=== PATIENT | male | born 1955 | race Caucasian/White ===

== ENCOUNTER → 2019-04-02 12:33 | Outpatient (BNVA) | payer MEDICARE, SELFPAY | PROVIDERS: Family Provider Family Medicine; Visit Provider Nurse Practitioner | DX: F33.2 Major depressive disorder, recurrent severe without psychotic features (principal); F41.1 Generalized anxiety disorder; F10.20 Alcohol dependence, uncomplicated; F17.218 Nicotine dependence, cigarettes, with other nicotine-induced disorders | CPT/HCPCS: 99213 ==

== ENCOUNTER → 2019-07-02 08:25 | Outpatient (BNVA) | payer MEDICARE, SELFPAY | PROVIDERS: Family Provider Family Medicine; Visit Provider Nurse Practitioner | DX: F33.2 Major depressive disorder, recurrent severe without psychotic features (principal) | CPT/HCPCS: 99203; 99213 ==

== ENCOUNTER → 2019-09-26 09:40 | Outpatient (BNVA) | payer MEDICARE, MEDICAID, SELFPAY | PROVIDERS: Family Provider Family Medicine; Visit Provider Nurse Practitioner | DX: F33.2 Major depressive disorder, recurrent severe without psychotic features (principal); F41.1 Generalized anxiety disorder; F17.218 Nicotine dependence, cigarettes, with other nicotine-induced disorders; F10.20 Alcohol dependence, uncomplicated | CPT/HCPCS: 99214 ==

== ENCOUNTER 2019-11-03 14:31 | Emergency (ER) | payer MEDICARE, MEDICAID, SELFPAY ==
[2019-11-03] VITALS (9 sets, daily range): BP systolic 80–113; BP diastolic 43–60; PULSE 76–95; RESP 16–24; TEMP 37.1; O2SAT 91–100; BMI 22.2
--- NOTE | 2019-11-03 14:38 | XR_ITS ---
WS: [id number] EXAM: AP CHEST: PORTABLE UPRIGHT DATE OF EXAM: 11/03/2019, 1448 hours COMPARISON: Chest x-ray from 01/17/2017 HISTORY: Patient is 64 years old with fall injury. Complaining of shortness of breath. FINDINGS: The cardiac silhouette is stable and within normal limits. The mediastinal contours are similar. The pulmonary vascularity is normal. Chronic lung changes are demonstrated. There has been interval increase in bilateral basilar interstitial markings. Whether this represents progression of fibrosis versus interstitial pneumonitis or other inflammatory process is uncertain. There is no effusion or pneumothorax. Bone density is decreased. XR/XR chest 1V portable [id number] IMPRESSION: Chronic lung changes. Worsening bilateral interstitial markings in both lung ba ses suggesting either progression of fibrosis versus an acute interstitial pneu monitis or inflammatory process. I do not think this represents pulmonary edema .
--- NOTE | 2019-11-03 14:38 | XR_ITS ---
WS: [id number] EXAM: AP PELVIS DATE OF EXAMINATION: 11/03/2019, 1451 hours COMPARISON: None. HISTORY: Patient is 64 years old with pelvic pain status post fall. Pain in the right hip. FINDINGS: Bone density is profoundly decreased. Multilevel changes of arthritis are seen in the lower lumbar sp ine. Endovascular stenting seen in the area of the left common iliac artery. Slight arthritis within both SI joints. Endovascular stenting seen in the area of the left proximal upper thigh region. Dedic ated views of both hips recommended. There is a lucent line across the quadrilateral surface involvin g the right acetabulum suggesting an anterior column fracture. Dedicated 2 views of the right hip rec ommended. There are findings of a fracture involving the right inferior pubic ramus. XR/XR pelvis 1-2V* [id number] IMPRESSION: Imaging findings of a fractured right inferior pubic ramus and suspected fractu re involving the right acetabular anterior column. Dedicated views of the right hip recommended.
--- NOTE | 2019-11-03 14:38 | CT_ITS ---
WS: [id number] EXAM: CT cervical spin wo con* [id number] DATE OF EXAMINATION: 11/03/2019, 1551 hours COMPARISON: Cervical spine examination from 07/16/2014 HISTORY: 64 years old with neck pain status post fall. TECHNIQUE: Transaxial computed tomography was obtained through the cervical spine and viewed in multi ple windows with reconstructions. DLP: 428.[address] scans at [facility] use at least one of these dose optimization techniques: automat ed exposure control; mA and/or kV adjustment per patient size (includes targeted exams where dose is matched to clinical indication); or iterative reconstruction. FINDINGS: Skull base is intact. Mastoid air cells are pneumatized and well-aerated. Predens space and preverteb ral soft tissue plane are normal. There is a large old anterior corpectomy with fibular strut fixatio n between C3 and C6 with solid ankylosis across the fusion. Anterior plate and screws in stable posit ion. Degenerative polyposis changes C2-3, C6-7 and C7-T1 similar. Old compression fracture deformity superior endplate of T1 similar. Old segmented spinous process fracture of T1 versus old nydia shoulde rs fracture again noted. Considered chronic. An acute fracture is not seen. There are findings of ank ylosis across bilateral C3-4 facet joints. Fairly severe spinal canal stenosis C2-3 level with mass e ffect on the cord. AP diameter of the canal around 5 mm. Right greater than left neural foraminal gisell nosis C2-3 level. Lung apices are clear. Some minimal emphysematous changes demonstrated. CT/CT cervical spin wo con* [id number] IMPRESSION: Old prior surgical changes as described with solid ankylosis across the fusion. No acute fracture or subluxation malalignment. Severe spinal canal stenosis wit h cord deformity C2-3 level similar to prior imaging. Spine surgery referral re commended.
--- NOTE | 2019-11-03 14:38 | CT_ITS ---
WS: [id number] EXAM: CT head wo con* [id number] DATE OF EXAMINATION: 11/03/2019, 1548 hours COMPARISON: Head CT from 07/23/2014 HISTORY: 64 years old with head injury status post fall. Complaining of pain. TECHNIQUE: Thin slice imaging obtained through the brain. Viewed in brain, subdural and bone window with reconst ructions. DLP: 554.[address] scans at [facility] use at least one of these dose optimization techniques: automat ed exposure control; mA and/or kV adjustment per patient size (includes targeted exams where dose is matched to clinical indication); or iterative reconstruction. FINDINGS: Slight motion artifact on the examination. Generalized changes of age-related atrophy again seen. Gra y-white differentiation is normal. There are slight changes of decreased attenuation within the white matter felt to represent sequelae from chronic small vessel white matter microangiopathic change. No findings of hemorrhage, hydrocephalus, mass, mass effect or abnormal extra-axial fluid collection is seen. Overall bone density is decreased. No skull fracture seen. Mastoid air cells are pneumatized and well aerated. Slight chronic sinusitis changes demonstrated. Extracalvarial soft tissues are unre markable. The paranasal sinuses are well pneumatized as visualized. CT/CT head wo con* [id number] IMPRESSION: Atrophy and slight chronic white matter changes. No acute intracranial process.
--- NOTE | 2019-11-03 14:39 | ECG_ITS ---
[facility] Test Date: 2019-11-03 Pat Name: Raz Cardenas Department: Room: Gender: Male [employer] Director: : [id number] Requested By: Su Coulter Order Number: [id number] Sharron MD: Vanesa Morris M.D. Measurements Intervals [place] Rate: 76 P: 65 [place]: 194 QRS: 21 QRSD: 85 T: 54 QT: 383 QTc: 431 Interpretive Statements SINUS RHYTHM Compared to ECG 01/17/2017 20:03:16 No significant changes Electronically Signed On 11-03-2019 20:52:24 CDT by Vanesa Morris M.D. [email or web address]
--- NOTE | 2019-11-03 14:40 | ED_ITS ---
HPI - SOB/Dyspnea General: Chief Complaint: Shortness of Breath/Dyspnea Stated Complaint: HYPOXIC Time Seen by Provider: 11/03/19 14:34 Source: patient and EMS Mode of arrival: EMS Limitations: no limitations History of Present Illness: HPI Narrative: 64-year-old male who is here with EMS with alcohol toxic patient a fall and shortness of breath. Patient states he drinks daily and has been drinking today. He states he had a fall last night and hit his head and has head pain. When EMS arrived patient's pulse ox was in the 70s and he is requiring oxygen. He has a history of congestive heart failure. Patient does not require oxygen at home. Associated symptoms: Reports extremity pain; Deny abdominal pain, chest pain, fever(s), nausea or vomiting Review of Systems Const: Denies: fever(s), chills, body aches or change in appetite Eyes: Denies: blurry vision or eye discomfort ENMT: Denies: throat pain or dental pain Card: Denies: chest pain Resp: Reports: dyspnea GI: Denies: abdominal pain, nausea, vomiting or diarrhea : Denies: dysuria Musc: Reports: extremity pain Skin/Breast: Denies: rash Neuro: Denies: headache(s) Psych: Denies: depression Will/Lymph: Denies: easy bruising All/Imm: Denies: urticaria PFSH ED PFSH: Medical History Alcohol dependence, uncomplicated Generalized anxiety disorder Major depressive disorder, recurrent severe without psychotic features Nicotine dependence, cigarettes, with other nicotine-induced disorders Social History Smoking and tobacco status: current every day smoker cigarettes Smoking risk assessment/counseling performed?: Yes Tobacco counseling given: counseling >3 minutes Physical Exam Const: COMMON NORMALS: no acute distress and patient oriented x3 GENERAL APPEARANCE: ill appearing HENMT: COMMON NORMALS: normocephalic and atraumatic HEAD & SCALP: normocephalic and atraumatic Eye: COMMON NORMALS: Equal, round and reactive pupils present and EOMs intact bilaterally PUPIL: Yes Equal, round and reactive pupils present Neck/C-Spine: COMMON NORMALS: full ROM and supple Chest: COMMONS NORMALS: normal inspection of the chest and normal palpation of entire chest wall Resp: COMMON NORMALS: normal respiratory effort, No retractions and No use of accessory muscles AUSCULTATION: rales Cardio: COMMON NORMALS: regular rate, regular rhythm and No murmurs present (Cardio) RATE: regular rate RHYTHM: regular rhythm GI: COMMON NORMALS: Normal to inspection, nondistended, normoactive bowel sounds present, Soft to palpation, non-tender and no masses PALPATION: Yes Soft to palpation Extremity: COMMON NORMALS: normal to inspection and full ROM Neuro: COMMON NORMALS: patient oriented x3, moves all extremities and no focal motor deficits Psych: COMMON NORMALS: mental status grossly normal, Normal thought process present and cooperative THOUGHT PROCESS: Normal thought process present Skin: COMMON NORMALS: no rashes or lesions noted and no wounds GENERAL SKIN EXAM: no rashes or lesions noted Course Vital Signs: Vital signs: Vital Signs Temperature 98.7 F 11/03/19 14:33 Pulse Rate 93 11/03/19 18:09 Respiratory Rate 18 11/03/19 18:09 Blood Pressure 113/53 11/03/19 18:09 Pulse Oximetry 94 11/03/19 18:09 MDM - SOB/Dyspnea MDM Narrative: Medical decision making narrative: Patient presents here with acute kidney injury likely from severe dehydration. Patient was initially hypotensive when he arrived but after IV fluids his blood pressures improved greatly. He does have an elevated creatinine. Patient also has bilateral pneumonia noted on CT. I start patient on IV antibiotics. I spoke to hospitalist Dr. Ya and will admit at this time. Lab Data: Labs: Lab Results 11/03/19 11/03/19 11/03/19 Range/Units 14:15 14:15 14:15 WBC 14.7 H (4.0-10.0) 10^3/ uL RBC 4.56 (4.1-5.3) 10^6/u L Hgb 13.9 (11.7-16.6) g/dL Hct 43.2 (42.0-52.0) % MCV 94.7 H (80-94) fL MCH 30.5 (28.0-34.0) pg MCHC 32.2 (30.0-36.0) g/dL RDW 15.3 H (12.1-15.1) % Plt Count 241 (130-400) 10^3/c mm MPV 9.5 (7.4-10.4) fL Neut % (Auto) 70.7 % Lymph % (Auto) 11.2 % [place] % (Auto) 17.1 % Eos % (Auto) 0.2 % Baso % (Auto) 0.3 % Neut # (Auto) 10.37 H (1.8-7.7) 10^3/u L Lymph # (Auto) 1.7 (0.8-4.8) 10^3/u L [place] # (Auto) 2.5 H (0.2-0.9) 10^3/u L Eos # (Auto) 0.0 (0.0-0.8) 10^3/u L Baso # (Auto) 0.1 (0.0-0.1) 10^3/u L Nucleated RBC % (a uto) 0 % Nucleated RBCs # 0.0 /100WBC PT 13.70 (12.1-14.9) SECO NDS INR 1.04 (0.8-1.2) Specimen Type Sample Site ABG pH (7.35-7.45) ABG pCO2 (35-45) mmHg ABG pO2 (80.0-100.0) mmH g ABG HCO3 (22-26) mmol/L ABG Base Excess (-2.0-2.0) mmol/ L Clyde Test Hematocrit (42-52) % O2 Delivery Device O2 Liters/Min % Apparel Patternmaker ID Sodium 133 L (136-145) mmol/L Potassium 4.4 (3.5-5.1) mmol/L Chloride 96 L (98-107) mmol/L Carbon Dioxide 21 L (22-29) mmol/L Anion Gap 20.4 H (5-19) BUN 33 H (8-23) mg/dL Creatinine 3.7 H (0.7-1.2) mg/dL GFR Calculation 16.6 L (90-130) mL/min Glucose 94 (65-115) mg/dL Calculated Osmolal ity 273 L (285-295) mOsm/k g Lactate (0.5-2.2) mmol/L Calcium 7.8 L (8.5-10.5) mg/dL Total Bilirubin 0.4 (0.15-1.2) mg/dL AST 144 H (0-40) U/L ALT 71 H (0-41) U/L Alkaline Phosphata se 102 (40-130) IU/L NT-Pro-B Natriuret Pep 491 H (0-125) pg/mL Total Protein 7.0 (6.6-8.7) g/dL Albumin 3.5 (3.5-5.2) g/dL Globulin 3.5 (1.3-4.6) g/dL Urine Color (Yellow) Urine Appearance (CLEAR) Urine pH (5-7) Ur Specific Gravit y (1.005-1.030) Urine Protein (Negative) Urine Glucose (UA) (Normal) Urine Ketones (Negative) Urine Blood (Negative) Urine Nitrate (Negative) Urine Bilirubin (Negative) Urine Urobilinogen (Negative) mg/dL Ur Leukocyte Latricia ase (Negative) Urine RBC (0-2) /hpf Urine WBC (0-5) /hpf Ur Squamous Epith Cells (0-5) /hpf Amorphous Sediment /hpf Urine Bacteria (NONE) /hpf Hyaline Casts /lpf Urine Mucus /hpf Ethyl Alcohol < 10 (0-10) mg/dL SARS-CoV-2 Ag (Rap id) (Negative) 11/03/19 11/03/19 11/03/19 Range/Units 14:53 15:02 16:54 WBC (4.0-10.0) 10^3/ uL RBC (4.1-5.3) 10^6/u L Hgb (11.7-16.6) g/dL Hct (42.0-52.0) % MCV (80-94) fL MCH (28.0-34.0) pg MCHC (30.0-36.0) g/dL RDW (12.1-15.1) % Plt Count (130-400) 10^3/c mm MPV (7.4-10.4) fL Neut % (Auto) % Lymph % (Auto) % [place] % (Auto) % Eos % (Auto) % Baso % (Auto) % Neut # (Auto) (1.8-7.7) 10^3/u L Lymph # (Auto) (0.8-4.8) 10^3/u L [place] # (Auto) (0.2-0.9) 10^3/u L Eos # (Auto) (0.0-0.8) 10^3/u L Baso # (Auto) (0.0-0.1) 10^3/u L Nucleated RBC % (a uto) % Nucleated RBCs # /100WBC PT (12.1-14.9) SECO NDS INR (0.8-1.2) Specimen Type Arterial Sample Site Radial, left ABG pH 7.23 L (7.35-7.45) ABG pCO2 52.4 H (35-45) mmHg ABG pO2 73.7 L (80.0-100.0) mmH g ABG HCO3 21.8 L (22-26) mmol/L ABG Base Excess -6.3 L (-2.0-2.0) mmol/ L Clyde Test Pos Hematocrit 44.6 (42-52) % O2 Delivery Device Nc O2 Liters/Min 5.5 % Apparel Patternmaker ID Cak Sodium (136-145) mmol/L Potassium (3.5-5.1) mmol/L Chloride (98-107) mmol/L Carbon Dioxide (22-29) mmol/L Anion Gap (5-19) BUN (8-23) mg/dL Creatinine (0.7-1.2) mg/dL GFR Calculation (90-130) mL/min Glucose (65-115) mg/dL Calculated Osmolal ity (285-295) mOsm/k g Lactate 1.7 (0.5-2.2) mmol/L Calcium (8.5-10.5) mg/dL Total Bilirubin (0.15-1.2) mg/dL AST (0-40) U/L ALT (0-41) U/L Alkaline Phosphata se (40-130) IU/L NT-Pro-B Natriuret Pep (0-125) pg/mL Total Protein (6.6-8.7) g/dL Albumin (3.5-5.2) g/dL Globulin (1.3-4.6) g/dL Urine Color (Yellow) Urine Appearance (CLEAR) Urine pH (5-7) Ur Specific Gravit y (1.005-1.030) Urine Protein (Negative) Urine Glucose (UA) (Normal) Urine Ketones (Negative) Urine Blood (Negative) Urine Nitrate (Negative) Urine Bilirubin (Negative) Urine Urobilinogen (Negative) mg/dL Ur Leukocyte Latricia ase (Negative) Urine RBC (0-2) /hpf Urine WBC (0-5) /hpf Ur Squamous Epith Cells (0-5) /hpf Amorphous Sediment /hpf Urine Bacteria (NONE) /hpf Hyaline Casts /lpf Urine Mucus /hpf Ethyl Alcohol (0-10) mg/dL SARS-CoV-2 Ag (Rap id) Negative (Negative) 11/03/19 Range/Units 17:48 WBC (4.0-10.0) 10^3/ uL RBC (4.1-5.3) 10^6/u L Hgb (11.7-16.6) g/dL Hct (42.0-52.0) % MCV (80-94) fL MCH (28.0-34.0) pg MCHC (30.0-36.0) g/dL RDW (12.1-15.1) % Plt Count (130-400) 10^3/c mm MPV (7.4-10.4) fL Neut % (Auto) % Lymph % (Auto) % [place] % (Auto) % Eos % (Auto) % Baso % (Auto) % Neut # (Auto) (1.8-7.7) 10^3/u L Lymph # (Auto) (0.8-4.8) 10^3/u L [place] # (Auto) (0.2-0.9) 10^3/u L Eos # (Auto) (0.0-0.8) 10^3/u L Baso # (Auto) (0.0-0.1) 10^3/u L Nucleated RBC % (a uto) % Nucleated RBCs # /100WBC PT (12.1-14.9) SECO NDS INR (0.8-1.2) Specimen Type Sample Site ABG pH (7.35-7.45) ABG pCO2 (35-45) mmHg ABG pO2 (80.0-100.0) mmH g ABG HCO3 (22-26) mmol/L ABG Base Excess (-2.0-2.0) mmol/ L Clyde Test Hematocrit (42-52) % O2 Delivery Device O2 Liters/Min % Apparel Patternmaker ID Sodium (136-145) mmol/L Potassium (3.5-5.1) mmol/L Chloride (98-107) mmol/L Carbon Dioxide (22-29) mmol/L Anion Gap (5-19) BUN (8-23) mg/dL Creatinine (0.7-1.2) mg/dL GFR Calculation (90-130) mL/min Glucose (65-115) mg/dL Calculated Osmolal ity (285-295) mOsm/k g Lactate (0.5-2.2) mmol/L Calcium (8.5-10.5) mg/dL Total Bilirubin (0.15-1.2) mg/dL AST (0-40) U/L ALT (0-41) U/L Alkaline Phosphata se (40-130) IU/L NT-Pro-B Natriuret Pep (0-125) pg/mL Total Protein (6.6-8.7) g/dL Albumin (3.5-5.2) g/dL Globulin (1.3-4.6) g/dL Urine Color Yellow (Yellow) Urine Appearance Hazy A (CLEAR) Urine pH 5 (5-7) Ur Specific Gravit y 1.015 (1.005-1.030) Urine Protein Neg (Negative) Urine Glucose (UA) Norm (Normal) Urine Ketones Negative (Negative) Urine Blood 3+ H (Negative) Urine Nitrate Negative (Negative) Urine Bilirubin Neg (Negative) Urine Urobilinogen Norm (Negative) mg/dL Ur Leukocyte Latricia ase Negative (Negative) Urine RBC 0-4 H (0-2) /hpf Urine WBC 0-4 H (0-5) /hpf Ur Squamous Epith Cells 0-4 H (0-5) /hpf Amorphous Sediment 3+ /hpf Urine Bacteria Trace (NONE) /hpf Hyaline Casts 5-10 H /lpf Urine Mucus 1+ /hpf Ethyl Alcohol (0-10) mg/dL SARS-CoV-2 Ag (Rap id) (Negative) Imaging Data^: CXR: Attestation: I personally reviewed and interpreted this imaging study as follows: Radiologist's impression: [address] [address] XRay Report Signed Patient: Raz Cardenas Unit #: [id number] : 1955 Age/Sex: 64 / M ADM Date: 11/03/19 Loc: ER Room/Bed: Attending Dr: Ordering Provider/Ordering MD: Su Coulter MD Date of Service: 11/03/19 Procedure(s): XR chest 1V portable [id number] Accession Number(s): [id number] Report Number: [id number] WS: [id number] EXAM: AP CHEST: PORTABLE UPRIGHT DATE OF EXAM: 11/03/2019, 1448 hours COMPARISON: Chest x-ray from 01/17/2017 HISTORY: Patient is 64 years old with fall injury. Complaining of shortness of breath. FINDINGS: The cardiac silhouette is stable and within normal limits. The mediastinal contours are similar. The pulmonary vascularity is normal. Chronic lung changes are demonstrated. There has been interval increase in bilateral basilar interstitial markings. Whether this represents progression of fibrosis versus interstitial pneumonitis or other inflammatory process is uncertain. There is no effusion or pneumothorax. Bone density is decreased. XR/XR chest 1V portable [id number] IMPRESSION: Chronic lung changes. Worsening bilateral interstitial markings in both lung bases suggesting either progression of fibrosis versus an acute interstitial pneumonitis or inflammatory process. I do not think this represents pulmonary edema. Other Xray: Attestation: I personally reviewed and interpreted this imaging study as follows: Radiologist's impression: [address] [address] XRay Report Signed Patient: Raz Cardenas Unit #: [id number] : 1955 Age/Sex: 64 / M ADM Date: 11/03/19 Loc: ER Room/Bed: Attending Dr: Ordering Provider/Ordering MD: Su Coulter MD Date of Service: 11/03/19 Procedure(s): XR pelvis 1-2V* [id number] Accession Number(s): [id number] Report Number: [id number] WS: [id number] EXAM: AP PELVIS DATE OF EXAMINATION: 11/03/2019, 1451 hours COMPARISON: None. HISTORY: Patient is 64 years old with pelvic pain status post fall. Pain in the right hip. FINDINGS: Bone density is profoundly decreased. Multilevel changes of arthritis are seen in the lower lumbar spine. Endovascular stenting seen in the area of the left common iliac artery. Slight arthritis within both SI joints. Endovascular stenting seen in the area of the left proximal upper thigh region. Dedicated views of both hips recommended. There is a lucent line across the quadrilateral surface involving the right acetabulum suggesting an anterior column fracture. Dedicated 2 views of the right hip recommended. There are findings of a fracture involving the right inferior pubic ramus. XR/XR pelvis 1-2V* [id number] IMPRESSION: Imaging findings of a fractured right inferior pubic ramus and suspected fracture involving the right acetabular anterior column. Dedicated views of the right hip recommended. CT Head: Radiologist's impression: [address] [address] [address] Scan Report Signed Patient: Raz Cardenas Unit #: [id number] : 1955 Age/Sex: 64 / M ADM Date: 11/03/19 Loc: ER Room/Bed: Attending Dr: Ordering Provider/Ordering MD: Su Coulter MD Date of Service: 11/03/19 Procedure(s): CT head wo con* [id number] Accession Number(s): [id number] Report Number: [id number] WS: [id number] EXAM: CT head wo con* [id number] DATE OF EXAMINATION: 11/03/2019, 1548 hours COMPARISON: Head CT from 07/23/2014 HISTORY: 64 years old with head injury status post fall. Complaining of pain. TECHNIQUE: Thin slice imaging obtained through the brain. Viewed in brain, subdural and bone window with reconstructions. DLP: 554.[address] scans at [facility] use at least one of these dose optimization techniques: automated exposure control; mA and/or kV adjustment per patient size (includes targeted exams where dose is matched to clinical indication); or iterative reconstruction. FINDINGS: Slight motion artifact on the examination. Generalized changes of age-related atrophy again seen. Charlton-white differentiation is normal. There are slight changes of decreased attenuation within the white matter felt to represent sequelae from chronic small vessel white matter microangiopathic change. No findings of hemorrhage, hydrocephalus, mass, mass effect or abnormal extra-axial fluid collection is seen. Overall bone density is decreased. No skull fracture seen. Mastoid air cells are pneumatized and well aerated. Slight chronic sinusitis changes demonstrated. Extracalvarial soft tissues are unremarkable. The paranasal sinuses are well pneumatized as visualized. CT/CT head wo con* [id number] IMPRESSION: Atrophy and slight chronic white matter changes. No acute intracranial process. ct c spine: Attestation: I personally reviewed and interpreted this imaging study as follows: Radiologist's impression: [address] [address] [address] Scan Report Signed Patient: Raz Cardenas Unit #: [id number] : 1955 Age/Sex: 64 / M ADM Date: 11/03/19 Loc: ER Room/Bed: Attending Dr: Ordering Provider/Ordering MD: Su Coulter MD Date of Service: 11/03/19 Procedure(s): CT cervical spin wo con* [id number] Accession Number(s): [id number] Report Number: [id number] WS: [id number] EXAM: CT cervical spin wo con* [id number] DATE OF EXAMINATION: 11/03/2019, 1551 hours COMPARISON: Cervical spine examination from 07/16/2014 HISTORY: 64 years old with neck pain status post fall. TECHNIQUE: Transaxial computed tomography was obtained through the cervical spine and viewed in multiple windows with reconstructions. DLP: 428.[address] scans at [facility] use at least one of these dose optimization techniques: automated exposure control; mA and/or kV adjustment per patient size (includes targeted exams where dose is matched to clinical indication); or iterative reconstruction. FINDINGS: Skull base is intact. Mastoid air cells are pneumatized and well-aerated. Predens space and prevertebral soft tissue plane are normal. There is a large old anterior corpectomy with fibular strut fixation between C3 and C6 with solid ankylosis across the fusion. Anterior plate and screws in stable position. Degenerative polyposis changes C2-3, C6-7 and C7-T1 similar. Old compression fracture deformity superior endplate of T1 similar. Old segmented spinous process fracture of T1 versus old nydia shoulders fracture again noted. Considered chronic. An acute fracture is not seen. There are findings of ankylosis across bilateral C3-4 facet joints. Fairly severe spinal canal stenosis C2-3 level with mass effect on the cord. AP diameter of the canal around 5 mm. Right greater than left neural foraminal stenosis C2-3 level. Lung apices are clear. Some minimal emphysematous changes demonstrated. CT/CT cervical spin wo con* [id number] IMPRESSION: Old prior surgical changes as described with solid ankylosis across the fusion. No acute fracture or subluxation malalignment. Severe spinal canal stenosis with cord deformity C2-3 level similar to prior imaging. Spine surgery referral recommended. CT Chest: Radiologist's impression: [address] [place] [address] CT Scan Report Signed Patient: Raz Cardenas Unit #: [id number] : 1955 8020 Age/Sex: 64 / M ADM Date: 11/03/19 Loc: ER Room/Bed: Attending Dr: Ordering Provider/Ordering MD: Su Coulter MD Date of Service: 11/03/19 Procedure(s): CT chest abd pel wo con Accession Number(s): [id number] Report Number: [id number] WS: [id number] EXAM: CT OF THE CHEST, ABDOMEN AND PELVIS WITHOUT CONTRAST DATE OF EXAMINATION: 11/03/2019, 1555 hours COMPARISON: CT of the chest from 12/16/2014. HISTORY: 64 years old with fall injury. Short of breath. Chest and abdomen pain. TECHNIQUE: Transaxial computed tomography images obtained through the chest, abdomen and pelvis without utilization of contrast viewed in multiple windows with reconstructions. DLP: 1219.[address] scans at [facility] use at least one of these dose optimization techniques: automated exposure control; mA and/or kV adjustment per patient size (includes targeted exams where dose is matched to clinical indication); or iterative reconstruction. FINDINGS: Underlying emphysematous lung changes are demonstrated. Honeycombing and fibrosis demonstrated. There is quite a bit of consolidation in both lung bases suggesting an acute pneumonia. Trace fluid bilaterally. Calcified plaque in the aorta. No mediastinal mass seen. Heart size is considered upper limits of normal. Thoracic and abdominal aorta shows peripheral calcified plaque without aneurysmal dilatation. Endovascular stenting seen in the left common iliac artery. Without IV contrast evaluation of the lumen is considered inadequate. Liver attenuation is normal. Gallbladder is normally distended. No pericholecystic inflammatory changes are seen. No biliary dilatation is noted. Spleen and accessory splenule are unremarkable Small amount of stranding around the pancreas of uncertain significance. Please correlate with amylase and lipase values. In the appropriate clinical setting could represent pancreatitis. Adrenal glands are normal appearance. Slight perinephric stranding around both kidneys. No obstructive uropathy. Stomach is decompressed. Otherwise normal in appearance. Small bowel is normal in caliber. The colon is normal in caliber. No findings of bowel obstruction, free air, free fluid or inflammatory process. Appendix is normal appearance with intraluminal concretions. No intraperitoneal or retroperitoneal adenopathy or masses seen. Bladder for the most part is minimally distended. Wall is thickened presumably related to underdistended status. Small umbilical hernia containing fat. No groin hernia. Additional postsurgical changes are seen in the left groin region with endovascular stenting and surgical clips. No definite rib fracture is seen. There has been interval development of a vertebral plana fracture deformity of T7 with retropulsion of the posterior inferior wall. Causing mass effect upon the thecal sac with narrowing the AP diameter of the canal by about 50%. There is an acute superior endplate compression fracture deformity of T4 with a Schmorl's node indentation with about 20% loss of height. No disruption of the facets is demonstrated however there is a fracture involving the right T7 vertebral body and facet juncture. Prostate is slightly enlarged. There are findings of a subacute right inferior pubic ramus fracture and right anterior column fracture. CT/CT chest abd pel wo con IMPRESSION: Subacute right acetabular anterior column fracture and subacute right inferior pubic ramus fracture. Vertebral plana fracture T7 vertebral body with slight retropulsion of the posterior wall narrowing the canal by about 50%. The fracture disrupts the right T7 vertebral body and pedicle juncture. Small Schmorl's node indentation compression fracture deformity superior endplate of T4. Extensive bibasilar infiltrates suggesting pneumonia. No findings of visceral bowel or solid organ injury identified within the limits of no IV contrast. Other nonemergent findings as described in the body of the report. Critical Care Time Critical Care Time: Critical Care Time: Yes Total Critical Care Time: 36 Attestation: This case had a high probability of a clinically significant, sudden, or life threatening deterioration of this patient's condition which required my full and direct attention, intervention and personal management. Discharge Plan Discharge Patient Disposition: Admitted As Inpatient Clinical Impression: Acute kidney injury Community acquired pneumonia Qualifiers: Laterality: left Lung location: lower lobe of lung Qualified Code(s): J18.9 - Pneumonia, unspecified organism Condition: Stable Referrals: Jaden Bonner [Family Provider] - Coding Level of Care Code ED [place] for Chg Fwd Exam Comprehensive
[2019-11-03 15:04] LABS: ABG PCO2 52.4 mmHg (35-45); ABG PH Result 7.23 (7.35-7.45); Arterial Blood Gas Hematocrit 44.6 % (42-52); Base Excess ABG -6.3 mmol/L (-2.0-2.0); Blood Gas Allen Test Pos; Blood Gas LPM 5.5 %; Blood Gas Operator Identificat CAK; Blood Gas Sample Site Radial, left; Blood Gas Sample Type Arterial; HCO3 ABG 21.8 mmol/L (22-26); Oxygen Device NC; PO2 ABG 73.7 mmHg (80.0-100.0)
[2019-11-03 15:08] LABS: Basophils # 0.1 10^3/uL (0.0-0.1); Basophils % 0.3 %; Eosinophils % 0.2 %; Hematocrit 43.2 % (42.0-52.0); Hemoglobin 13.9 g/dL (11.7-16.6); Lymphocytes # 1.7 10^3/uL (0.8-4.8); Lymphocytes % 11.2 %; Mean Corpuscular HGB Conc 32.2 g/dL (30.0-36.0); Mean Corpuscular Hemoglobin 30.5 pg (28.0-34.0); Mean Corpuscular Volume 94.7 fL (80-94); Mean Platelet Volume 9.5 fL (7.4-10.4); Monocytes # 2.5 10^3/uL (0.2-0.9); Monocytes % 17.1 %; Neutrophils # 10.37 10^3/uL (1.8-7.7); Neutrophils % 70.7 %; Nucleated Red Blood Cells % 0 %; Platelet Count 241 10^3/cmm (130-400); Red Blood Count 4.56 10^6/uL (4.1-5.3); Red Cell Distribution Width 15.3 % (12.1-15.1); White Blood Count 14.7 10^3/uL (4.0-10.0)
--- NOTE | 2019-11-03 15:19 | CT_ITS ---
WS: [id number] EXAM: CT OF THE CHEST, ABDOMEN AND PELVIS WITHOUT CONTRAST DATE OF EXAMINATION: 11/03/2019, 1555 hours COMPARISON: CT of the chest from 12/16/2014. HISTORY: 64 years old with fall injury. Short of breath. Chest and abdomen pain. TECHNIQUE: Transaxial computed tomography images obtained through the chest, abdomen and pelvis without utilizat ion of contrast viewed in multiple windows with reconstructions. DLP: 1219.[address] scans at [facility] use at least one of these dose optimization techniques: automat ed exposure control; mA and/or kV adjustment per patient size (includes targeted exams where dose is matched to clinical indication); or iterative reconstruction. FINDINGS: Underlying emphysematous lung changes are demonstrated. Honeycombing and fibrosis demonstrated. There is quite a bit of consolidation in both lung bases suggesting an acute pneumonia. Trace fluid bilate rally. Calcified plaque in the aorta. No mediastinal mass seen. Heart size is considered upper limits of normal. Thoracic and abdominal aorta shows peripheral calcified plaque without aneurysmal dilatat ion. Endovascular stenting seen in the left common iliac artery. Without IV contrast evaluation of th e lumen is considered inadequate. Liver attenuation is normal. Gallbladder is normally distended. No pericholecystic inflammatory changes are seen. No biliary dilatation is noted. Spleen and accessory splenule are unremarkable Small amount of stranding around the pancreas of uncertain significance. Please correlate with amylas e and lipase values. In the appropriate clinical setting could represent pancreatitis. Adrenal glands are normal appearance. Slight perinephric stranding around both kidneys. No obstructive uropathy. Stomach is decompressed. Otherwise normal in appearance. Small bowel is normal in caliber. The colon is normal in caliber. No findings of bowel obstruction, free air, free fluid or inflammatory process. Appendix is normal appearance with intraluminal concretions. No intraperitoneal or retroperitoneal adenopathy or masses seen. Bladder for the most part is minimally distended. Wall is thickened presumably related to underdisten ded status. Small umbilical hernia containing fat. No groin hernia. Additional postsurgical changes are seen in t he left groin region with endovascular stenting and surgical clips. No definite rib fracture is seen. There has been interval development of a vertebral plana fracture deformity of T7 with retropulsion of the posterior inferior wall. Causing mass effect upon the thecal sac with narrowing the AP diamete r of the canal by about 50%. There is an acute superior endplate compression fracture deformity of T4 with a Schmorl's node indentation with about 20% loss of height. No disruption of the facets is demo nstrated however there is a fracture involving the right T7 vertebral body and facet juncture. Prostate is slightly enlarged. There are findings of a subacute right inferior pubic ramus fracture a nd right anterior column fracture. CT/CT chest abd pel wo con IMPRESSION: Subacute right acetabular anterior column fracture and subacute right inferior pubic ramus fracture. Vertebral plana fracture T7 vertebral body with slight retropulsion of the post erior wall narrowing the canal by about 50%. The fracture disrupts the right T7 vertebral body and pedicle juncture. Small Schmorl's node indentation compression fracture deformity superior endpla te of T4. Extensive bibasilar infiltrates suggesting pneumonia. No findings of visceral bowel or solid organ injury identified within the limit s of no IV contrast. Other nonemergent findings as described in the body of the report.
[2019-11-03] MEDS: sodium chloride 0.9% 1,000 ML 999 ML IV ×2 (15:23→17:01)
[2019-11-03] MEDS: piperacillin-tazobactam 3.375 GM in sodium chloride 0.9% (plus) 50 ML IV (15:23)
[2019-11-03] MEDS: vancomycin 1,000 MG in sodium chloride 0.9% 250 ML 250 MG IV (15:26)
[2019-11-03 15:33] LABS: Lactate (Lactic Acid level) 1.7 mmol/L (0.5-2.2)
[2019-11-03 15:34] LABS: Alanine Aminotransferase 71 U/L (0-41); Albumin Level 3.5 g/dL (3.5-5.2); Alkaline Phosphatase 102 IU/L (40-130); Aspartate Amino Transferase 144 U/L (0-40); Blood Urea Nitrogen 33 mg/dL (8-23); Calcium 7.8 mg/dL (8.5-10.5); Carbon Dioxide 21 mmol/L (22-29); Chloride 96 mmol/L (98-107); Globulin 3.5 g/dL (1.3-4.6); Glomerular Filtration Rate 16.6 mL/min (90-130); Glucose 94 mg/dL (65-115); NT Pro B Type Natriuretic Pept 491 pg/mL (0-125); Osmolality Calculated 273 mOsm/kg (285-295); Sodium 133 mmol/L (136-145); Total Bilirubin 0.4 mg/dL (0.15-1.2)
[2019-11-03 15:36] LABS: Alcohol Level < 10 mg/dL (0-10); Anion Gap 20.4 (5-19); Potassium 4.4 mmol/L (3.5-5.1)
[2019-11-03 16:03] LABS: INR 1.04 (0.8-1.2)
[2019-11-03 18:09] LABS: Urine Appearance Hazy (CLEAR); Urine Color Yellow (Yellow); pH Urine 5 (5-7)
[2019-11-03 18:10] LABS: Add Urine Microscopic? YES; Bilirubin Urine Neg (Negative); Blood Urine 3+ (Negative); Glucose Urine UA Norm (Normal); Ketones Urine Negative (Negative); Leukocyte Esterase Urine Negative (Negative); Nitrate Urine Negative (Negative); Protein Urine Neg (Negative); Specific Gravity, Urine 1.015 (1.005-1.030); Urobilinogen Urine Norm (Negative)
[2019-11-03 18:18] LABS: SARS Covid-2 Antigen Negative (Negative)
[2019-11-03 18:20] LABS: Add Urine Culture? No; Amorphous Sediment Urine 3+ /hpf; Bacteria Urine TRACE /hpf; Mucus Urine 1+ /hpf; RBC Urine 0-4 /hpf (0-2); Squamous Epithelial Cell Urine 0-4 /hpf (0-5); WBC Urine 0-4 /hpf (0-5)
--- NOTE | 2019-11-03 19:23 | P.HP_ITS ---
Providers/Chief Complaint Chief Complaint: HYPOXIC History of Present Illness Raz Cardenas is a 64 year old male with past medical history of anxiety disorder, major depression, chronic alcoholic, chronic smoker who was brought into the ER today by EMS after he was found on the floor at the base of the stairs as per my conversation with the ER physician. No history is available as patient is confused and the next of kin is not picking up the phone. Most of the history taken to review of chart and from a conversation with the ER physician. As per the EMS patient has been consuming alcohol last night and today morning and was smelling of alcohol on EMS arrival. On my evaluation patient is disheveled, confused, oriented only to self and year and is not sure why and where he is. He complains of pain all over, nausea and cough. His investigations in the ER showed A white count of 14.7, hemoglobin of 14.9, INR 1.04, ABG showing a pH of 7.23, PCO2 of 52.4, PO2 of 73.7, sodium of 133, chloride of 96, carbon dioxide of 21, creatinine of 3.7, calcium of 7.8, AST/ALT of 144/71, UA showing 3+ blood negative for nitrite and leukoesterase with CT chest abdomen pelvis showing underlying emphysematous lung changes, honeycombing and fibrosis with extensive bibasilar infiltrates suggestive of pneumonia, subacute right acetabular anterior column fracture and subacute right inferior pubic ramus fracture, vertebral fracture Right T7 body. We do not have any labs in last 2 years to compare. Last patient in hospital was in 2017 at that time creatinine was within normal limits. Review of Systems General: Reports: ROS unobtainable due to mental status Medications/Allergies Home Medications Medication Instructions Recorded Confirmed Last Taken Type albuterol sulfate 90 mcg/actuation 2 puff INHALATION Q4H PRN gm 04/02/19 11/03/19 Unknown History aerosol inhaler amlodipine 5 mg tablet 5 mg PO DAILY 04/02/19 11/03/19 Unknown History baclofen 10 mg tablet 10 mg PO TID PRN 04/02/19 11/03/19 Unknown History budesonide-formoterol HFA 160 2 puff INHALATION BID 04/02/19 11/03/19 Unknown History mcg-4.5 mcg/actuation aerosol inhaler celecoxib 200 mg capsule 200 mg PO BID 04/02/19 11/03/19 Unknown History cetirizine 10 mg tablet 10 mg PO DAILY tab 04/02/19 11/03/19 Unknown History clopidogrel 75 mg tablet 75 mg PO DAILY 04/02/19 11/03/19 Unknown History famotidine 20 mg tablet 20 mg PO DAILY 04/02/19 11/03/19 Unknown History furosemide 20 mg tablet 20 mg PO DAILY 04/02/19 11/03/19 Unknown History hydralazine 25 mg tablet 25 mg PO QID 04/02/19 11/03/19 Unknown History metoprolol tartrate 25 mg tablet 25 mg PO BID 04/02/19 11/03/19 Unknown History mirtazapine 30 mg tablet 30 mg PO BEDTIME tab 04/02/19 11/03/19 Unknown History pregabalin 150 mg capsule 150 mg PO TID 04/02/19 11/03/19 Unknown History rivaroxaban 2.5 mg tablet 2.5 mg PO BID 04/02/19 11/03/19 Unknown History tamsulosin 0.4 mg capsule 0.4 mg PO DAILY 04/02/19 11/03/19 Unknown History tizanidine 2 mg capsule 2 mg PO Q8H PRN 04/02/19 11/03/19 Unknown History bupropion HCl 150 mg 24 hr tablet, 150 mg PO QAM #30 tab 09/26/19 11/03/19 Unknown Rx extended release bupropion HCl 300 mg 24 hr tablet, 300 mg PO QAM #30 tab 09/26/19 11/03/19 Unknown Rx extended release clonazepam 0.5 mg tablet 0.5 mg PO TID PRN #90 tab 09/26/19 11/03/19 Unknown Rx fluoxetine 40 mg capsule 40 mg PO DAILY #30 cap 09/26/19 11/03/19 Unknown Rx albuterol sulfate 2.5 mg INHALATION Q4H PRN 11/03/19 11/03/19 Unknown History atorvastatin [Lipitor] 40 mg PO QPM 11/03/19 11/03/19 Unknown History fluticasone propionate [Flonase 2 spray INTRANASAL DAILY 11/03/19 11/03/19 Unknown History Allergy Relief] lisinopril 5 mg PO DAILY 11/03/19 11/03/19 Unknown History pantoprazole [Protonix] 20 mg PO DAILY 11/03/19 11/03/19 Unknown History potassium chloride 10 meq PO DAILY 11/03/19 11/03/19 Unknown History roflumilast [Daliresp] 250 mcg PO DAILY 11/03/19 11/03/19 Unknown History Allergies Allergy/AdvReac Type Severity Reaction Status Date / Time No Known Allergies Allergy Verified 11/03/19 14:45 PFSH Acute PFSH: Medical History (Updated 11/03/19 @ 21:31 by Florentino Jerome MD) Alcohol dependence, uncomplicated Generalized anxiety disorder HTN (hypertension) Major depressive disorder, recurrent severe without psychotic features Nicotine dependence, cigarettes, with other nicotine-induced disorders Social History Smoking and tobacco status: current every day smoker cigarettes Smoking risk assessment/counseling performed?: Yes Tobacco counseling given: counseling >3 minutes Vitals/I&O/Wt Last Vital Signs Temp 98.7 F 11/03/19 14:33 Pulse 95 11/03/19 19:05 Resp 20 H 11/03/19 19:05 BP 106/55 11/03/19 19:05 Pulse Ox 93 11/03/19 19:05 11/03/19 11/03/19 11/03/19 06:59 14:59 22:59 Intake Total 1000 / 1000 Balance 1000 / 1000 Weight last 48 hrs Weight 62.596 kg Physical Exam Narrative: EXAM NARRATIVE: General: Acute distress because of confusion, AO x1 only to self on 4 L nasal cannula saturating 94%, disheveled. Is confused where and why is he here. HEENT: PERRLA, pupils bilaterally equal and reactive Chest: Bilateral bronchial breath sounds, bilateral coarse crackles present in lower zone, crackles more on the right side than left, more on the anterior side and posterior CVS: S1-S2 regular, no murmurs, tachycardia, no gallops, no rubs Abdomen: Soft, nontender, no organomegaly, bowel sounds present Neuro: Difficult to do neurological assessment as patient is not able to follow commands, bilaterally Babinski withdrawal, no visible facial deformity, moving both upper limbs Data : 11/03/19 14:15 11/03/19 14:15 Micro: Microbiology 11/03/19 16:47 Blood Culture - Preliminary Blood SPECIMEN COLLECTED 11/03/19 15:02 Blood Culture - Preliminary Blood SPECIMEN COLLECTED A&P Assessment and plan (1) Community acquired pneumonia: Status: Acute Qualifiers: Laterality: left Lung location: lower lobe of lung Qualified Code(s): J18.9 - Pneumonia, unspecified organism (2) Acute kidney injury: Status: Acute (3) Nicotine dependence, cigarettes, with other nicotine-induced disorders: Status: Acute (4) Alcohol dependence, uncomplicated: Status: Acute (5) Acetabulum fracture, right: Status: Acute (6) HTN (hypertension): Status: Acute (7) Major depressive disorder, recurrent severe without psychotic features: Status: Acute (8) Generalized anxiety disorder: Status: Acute (9) Sepsis with acute hypoxic respiratory failure: Status: Acute Additional A&P Information Sepsis with acute hypoxic respiratory failure due to pneumonia: Sepsis due to tachycardia, leukocytosis, borderline hypotension. Check lactate, blood culture, sputum culture, urine Legionella, urine culture, procalcitonin. Continue with vancomycin and Zosyn for broad coverage for now. DuoNebs every 6 hour, budesonide twice daily. Rapid COVID negative. If patient develops fever will check PCR. Normal saline at 50 cc/h. Keep mean artery pressure was 65 mmHg. Oxygen supplementation keeping saturation over 90%. Toxic metabolic encephalopathy: Could be because of alcohol withdrawal versus sepsis. Check urine drug screen. Start patient on CIWA protocol. Frequent reorientation. Sitter at bedside. Continue to monitor. AMINA: Could be because of sepsis versus dehydration. Do not have baseline labs in last 2 years. IV hydration as above. CT abdomen not consistent for any obstructive uropathy or hydronephrosis. Urine lites, urine creatinine, urine eosinophils. Medical reconciliation done for nephrotoxic drugs. Stop lisinopril. If creatinine continues to worsen will consult nephrology. Acetabular fracture: As per ER physician Dr. Llanos will be consulted. Will await recommendations. Patient also has vertebral fracture on the CT scan not sure of the chronicity. Also has inferior rami fracture which seems subacute. Will await Dr. Llanos's recommendation. For now morphine 1 mg IV every 6 hours as needed for pain. Will keep on the lower side because of creatinine abnormality. Hypertension: Goal blood pressure less than 140/90 mmHg keeping mean over 65. Continue with amlodipine 5 mg for now. Continue with hydralazine 25 mg 4 times daily, metoprolol at home dose. Hold off on lisinopril and Lasix. General anxiety disorder/major depressive disorder: Given abnormal creatinine will decrease the dose of Wellbutrin to 300 mg from 450 mg. Continue Remeron but will stop Prozac because of renal dysfunction at present. We will continue to monitor. Continue other chronic medications. Full code. Heparin 5000 every 12. Protonix for PUD prophylaxis. We will change medications as per the clinical picture development during the co urse of hospitalization. Will call the next of kin again tomorrow morning to gather more past medical history. Check echocardiogram. Attestations 2 Medical Necessity Statement*: More than 2 midnights for sepsis, acute hypoxic respiratory failure Time Spent in Patient Care: Greater than 35 minutes (>than 50% of time spent in counselling and/or direct pt care on unit) . Coding Level of Care Code Acute Early Interventionist for [facility] Fwd Diagnoses Community acquired pneumonia J18.9 Laterality: left Lung location: lower lobe of lung Acute kidney injury N17.9 Nicotine dependence, cigarettes, with other nicotine-induced disorders F17.218 Alcohol dependence, uncomplicated F10.20 Acetabulum fracture, right S32.401A HTN (hypertension) I10 Major depressive disorder, recurrent severe without psychotic features F33.2 Generalized anxiety disorder F41.1 Sepsis with acute hypoxic respiratory failure A41.9; R65.20; J96.01
--- NOTE | 2019-11-03 19:39 | PC.PHAR ---
VANCOMYCIN 1000MG Q48H PER PHARMACY RENAL DOSING PROTOCOL Pharmacokinetic dosing service Objective: Patient: Floor: Age: 64 yo Serum creatinine: 3.7 mg/dL Height: 66.1 Inches Weight (kg): 63 Assessment: IBW (kg): 64.03 Dosing wt(kg): 63 Estimated Creatinine clearance (ml/min): 17.7 CRCL method: Cockcroft and Gault using adjusted body weight Drug selected: Vancomycin Loading dose (mg): Vd (liters): 44.1 (factor used: 0.7 L/kg) Elia (hr-1): 0.019 Half life (hrs): 36.48 CLvanco= 0.838 L/hr Recommended dose: 1000 mg Interval: 48 hrs Infusion time (hrs): 1 Predicted peak (mcg/mL): 37.5 Predicted trough (mcg/mL): 15.35 Total body weight is being used for vancomycin dosing. Recommendations: Give Vancomycin 1000 mg q 48 hrs with an expected Cpeak of 37.5 mcg/ml and an expected Ctrough of 15.35 mcg/ml AUC 0-24 /JARRED Data: JARRED 0.5 mcg/mL: AUC/JARRED: 1193.3 JARRED 1.0 mcg/mL: AUC/JARRED: 596.7 --------- JARRED 1.5 mcg/mL: AUC/JARRED: 397.8 JARRED 2.0 mcg/mL: AUC/JARRED: 298.3 Renal dosing of other antibiotics (review renal dosing of other medications and list guidelines here): Thank you for the consult, will continue to follow.
[2019-11-03 19:55] LABS: Amphetamines Screen Urine Negative (Negative); Barbiturates Screen Urine Negative (Negative); Benzodiazepines Screen Urine Positive (Negative); Cocaine Screen Urine Negative (Negative); Opiate Screen Urine Negative (Negative); PCP Screen Urine Negative (Negative); THC Screen Urine Negative (Negative)
--- NOTE | 2019-11-03 20:10 | PC.NURSE ---
while placing belongings in belonging bag, gold necklace with wallet containing $123.00 in assorted bills, ID, debit card, various ins cards. Items placed in sealed manilla envelope, verified by Marlena Rojas RN, krystian Brock RN and myself
[2019-11-03 21:59] LABS: NT Pro B Type Natriuretic Pept 523 pg/mL (0-125); Thyroid Stimulating Hormone 0.82 uIU/mL (0.27-4.20)
[2019-11-03] MEDS: morphine 4 mg/mL SDV 1 mL IVP (22:00)
[2019-11-04 03:51] LABS: Iron 21 ug/dL (59-158); Percent Saturation 9.2 % (20-50); Total Iron Binding Capacity 228 mcg/dl; Unsaturated Iron Binding 207 ug/dL (112-347)
== END 2019-11-03 22:05 | disposition admitted as inpatient to this hospital (09) ==
LOC: ER 19:02 → MEDSURG 21:06
PROVIDERS: Student in an Organized Health Care Education/Training Program; Emergency Provider Emergency Medicine; Family Provider Family Medicine
DX: J18.9 Pneumonia, unspecified organism (principal); N17.9 Acute kidney failure, unspecified; F17.210 Nicotine dependence, cigarettes, uncomplicated
CPT/HCPCS: 12345; 36415; 36600; 70450; 71045; 71250; 72125; 72170; 74176; 80053; 80306; 80307; 81001; 82803; 83540; 83550; 83605; 83880; 84145; 84443; 85025; 85610; 87040; 87426; 87449; 93005; 96361; 96365; 96367; 96375; 99284; 99285; J2270; J2543; J3370; J7030; J7050

== ENCOUNTER → 2019-12-29 07:52 | Outpatient (BNVA) | payer MEDICARE, MEDICAID, SELFPAY | PROVIDERS: Family Provider Family Medicine; Visit Provider Nurse Practitioner | DX: F33.2 Major depressive disorder, recurrent severe without psychotic features (principal); F41.1 Generalized anxiety disorder; F10.20 Alcohol dependence, uncomplicated; F17.218 Nicotine dependence, cigarettes, with other nicotine-induced disorders | CPT/HCPCS: 99214 ==

== ENCOUNTER → 2020-03-26 08:00 | Outpatient (BNVA) | payer MEDICARE, MEDICAID, SELFPAY | PROVIDERS: Family Provider Family Medicine; Visit Provider Nurse Practitioner | DX: F33.2 Major depressive disorder, recurrent severe without psychotic features (principal); F41.1 Generalized anxiety disorder; F10.20 Alcohol dependence, uncomplicated; F17.218 Nicotine dependence, cigarettes, with other nicotine-induced disorders | CPT/HCPCS: 99214 ==

== ENCOUNTER → 2020-07-28 07:39 | Outpatient (BNVA) | payer MEDICARE, MEDICAID, SELFPAY | PROVIDERS: Family Provider Family Medicine; Visit Provider Nurse Practitioner | DX: F41.1 Generalized anxiety disorder (principal); F33.2 Major depressive disorder, recurrent severe without psychotic features; F17.218 Nicotine dependence, cigarettes, with other nicotine-induced disorders; F10.20 Alcohol dependence, uncomplicated | CPT/HCPCS: 99214 ==

== ENCOUNTER → 2020-09-29 07:23 | Outpatient (BNVA) | payer MEDICARE, MEDICAID, SELFPAY | PROVIDERS: Family Provider Family Medicine; Visit Provider Nurse Practitioner | DX: F33.2 Major depressive disorder, recurrent severe without psychotic features (principal); F41.1 Generalized anxiety disorder; F10.20 Alcohol dependence, uncomplicated; F17.218 Nicotine dependence, cigarettes, with other nicotine-induced disorders | CPT/HCPCS: 99214 ==

== ENCOUNTER → 2020-12-09 14:52 | Outpatient (BNVA) | payer MEDICARE, MEDICAID, SELFPAY | PROVIDERS: Family Provider Family Medicine; Visit Provider Nurse Practitioner | DX: F41.1 Generalized anxiety disorder (principal); F33.2 Major depressive disorder, recurrent severe without psychotic features; F17.218 Nicotine dependence, cigarettes, with other nicotine-induced disorders; F10.20 Alcohol dependence, uncomplicated | CPT/HCPCS: 99214 ==

== ENCOUNTER 2020-12-17 08:45 | Observation (INO) | payer MEDICARE, MEDICAID, SELFPAY ==
[2020-12-17] VITALS (7 sets, daily range): BP systolic 132–158; BP diastolic 83–117; PULSE 62–98; RESP 22–24; TEMP 36.6–36.8; O2SAT 91–97; BMI 15.7; BMI 16.5
--- NOTE | 2020-12-17 08:49 | CT_ITS ---
WS: [id number] CT LUMBAR SPINE, noncontrast. HISTORY: fall TECHNIQUE: Contiguous 2.5 mm axial imaging are performed. Sagittal and coronal reformats are submitte d and reviewed. All CT scans at [facility] use at least one of these dose optimization techni ques: automated exposure control; mA and/or kV adjustment per patient size (includes targeted exams w here dose is matched to clinical indication); or iterative reconstruction. IV contrast: None DLP: 296.80 mGy-cm. COMPARISON: 02/28/2007 Normal posterior alignment with mild straightening. No acute fracture. Mild diffuse osteopenia with m oderate disc space narrowing and desiccation throughout the lumbar spine. Remote healed fractures in the transverse processes on the LEFT of L2, L3 and L4. Fractures are new since 2007 but there is call us formation suggesting these are not acute. No high-grade central or foraminal stenosis identified. Extensive atherosclerosis aorta. Partial fusion of the LEFT SI joint. CT/CT lumbar spine wo con* [id number] IMPRESSION: 1. Study is compromised by motion artifact. 2. No acute lumbar spine fracture. 3. Remote healed LEFT transverse process fractures at L2, L3 and L4. 4. No acute disc herniations are identified.
--- NOTE | 2020-12-17 08:50 | CT_ITS ---
WS: [id number] CT HEAD NONCONTRAST HISTORY: fall TECHNIQUE: Contiguous axial imaging performed through the brain in 2.5 mm imaging. Bone and soft tiss ue windows. Sagittal and coronal reformats reviewed. All CT scans at [facility] use at least one of these dose optimization techniques: automated exposure control; mA and/or kV adjustment per pa tient size (includes targeted exams where dose is matched to clinical indication); or iterative recon struction. DLP: 1308.14 mGy-cm. COMPARISON: 11/03/2019. Study is significantly limited by motion artifact. Several attempts were made to obtain adequate exam ination. No hemorrhage or midline shift. There is mild chronic microvascular ischemic disease. No foreign bodi es. No atrophy or prior infarcts or herniation. Ventricles: Normal size with no hydrocephalus. Paranasal sinuses: As visualized are clear. Mastoid air cells: Well pneumatized. Calvarium and scalp: No abnormality identified but limited by motion artifact. CT/CT head wo con* [id number] IMPRESSION: 1. Quality examination is compromised by persistent motion artifact. 2. No acute abnormality is identified.
--- NOTE | 2020-12-17 08:50 | ECG_ITS ---
[facility] Test Date: 2020-12-17 Pat Name: Raz Cardenas Department: Room: Gender: Male [employer]: : 1955 Requested By: Jossue Sun Order Number: [id number] Sharron MD: Izabella Garcia M.D. Measurements Intervals [place] Rate: 86 P: 78 [place]: 174 QRS: 38 QRSD: 87 T: 57 QT: 371 QTc: 445 Interpretive Statements SINUS RHYTHM Compared to ECG 11/03/2019 15:04:44 No significant changes Electronically Signed On 12-18-2020 8:53:36 CDT by Izabella Garcia M.D. [id number]
--- NOTE | 2020-12-17 08:59 | W.ED.GENADLT ---
HPI - General Adult General: Chief complaint: Alcohol Stated complaint: FALL, ETOH, BACK PAIN, CONFUSION Time Seen by Provider: 12/17/20 08:49 History of Present Illness: HPI narrative: Acutely intoxicated 65-year-old male presents to the emergency room for frequent falls confusion over the last several months he was wandering outside with a walker.. He admits to drinking heavily through the day yesterday. He was found wandering outside today by his neighbors who called EMS. He is complaining of hooks in his feet. He has a known history of peripheral neuropathy. He also has a history of alcohol induced psychosis. Onset (ago): unknown Radiation: back Severity: mild Quality: burning Pain Consistency: constant Relieving factors: none Exacerbating factors: other (palpation) Associated symptoms: Deny chest pain, confusion, cough, diaphoresis, decreased appetite, dyspnea, fevers/chills, headache(s), malaise, nausea, rash, palpitations, seizures, short of breath, syncope, vomiting or weakness Treatments prior to arrival: none Review of Systems Const: Denies: malaise or diaphoresis ENMT: Denies: throat pain, ear or mastoid pain, nasal discharge or nasal congestion Card: Denies: chest pain, palpitations or syncope Resp: Denies: dyspnea GI: Denies: nausea or vomiting : Denies: flank pain, dysuria, urinary frequency or urinary urgency Skin/Breast: Denies: rash Neuro: Denies: headache(s) or confusion COUNTS INCLUDE 234 BEDS AT THE [facility] ED PFSH: Medical History Alcohol dependence, uncomplicated Generalized anxiety disorder HTN (hypertension) Major depressive disorder, recurrent severe without psychotic features Nicotine dependence, cigarettes, with other nicotine-induced disorders Social History Smoking and tobacco status: current every day smoker cigarettes Smoking risk assessment/counseling performed?: Yes Tobacco counseling given: counseling >3 minutes Physical Exam Const: COMMON NORMALS: no acute distress GENERAL APPEARANCE: cooperative and comfortable ORIENTATION/CONSCIOUSNESS: Yes awake HENMT: COMMON NORMALS: normocephalic, atraumatic and hearing grossly normal bilaterally HEAD & SCALP: normocephalic and atraumatic Neck/C-Spine: COMMON NORMALS: no JVD Resp: AUSCULTATION: rhonchi and wheezes Cardio: COMMON NORMALS: no JVD, regular rate, regular rhythm and No murmurs present (Cardio) RATE: regular rate RHYTHM: regular rhythm GI: COMMON NORMALS: Soft to palpation and No hepatosplenomegaly present AUSCULTATION: Yes normoactive bowel sounds PALPATION: Yes Soft to palpation, No Tenderness to palpation present (GI), No Guarding due to palpation present (GI) and Yes No hepatosplenomegaly present Extremity: COMMON NORMALS: normal to inspection, capillary refill normal, no clubbing, cyanosis or edema, no calf tenderness and no pedal edema Skin: COMMON NORMALS: no rashes or lesions noted GENERAL SKIN EXAM: no rashes or lesions noted Course Vital Signs: Vital signs: Vital Signs Temperature 97.8 F 12/17/20 09:56 Pulse Rate 98 12/17/20 13:02 Respiratory Rate 22 H 12/17/20 08:47 Blood Pressure 134/90 12/17/20 13:02 Pulse Oximetry 95 12/17/20 13:02 MDM - General Adult MDM Narrative: Medical decision making narrative: Admit with alcohol withdrawal and pneumonia. Discussed with hospitalist. Lab Data: Labs: Lab Results 12/17/20 12/17/20 12/17/20 09:48 09:48 09:48 WBC 14.8 10^3/uL H 10 ^3/uL (4.0-10.0) RBC 4.77 10^6/uL 10^6 /uL (4.1-5.3) Hgb 15.0 g/dL g/dL (11.7-16.6) Hct 44.4 % % (42.0-52.0) MCV 93.1 fl fl (80-94) MCH 31.4 pg pg (28.0-34.0) MCHC 33.8 g/dL g/dL (30.0-36.0) RDW 12.7 % % (12.1-15.1) Plt Count 378 10^3/cmm 10^3 /cmm (130-400) MPV 8.3 fL fL (7.4-10.4) Neut % (Auto) 76.9 % % Lymph % (Auto) 9.5 % % [place] % (Auto) 11.9 % % Eos % (Auto) 0.2 % % Baso % (Auto) 0.4 % % Neut # (Auto) 11.39 10^3/uL H 1 0^3/uL (1.8-7.7) Lymph # (Auto) 1.4 10^3/uL 10^3/ uL (0.8-4.8) [place] # (Auto) 1.8 10^3/uL H 10^ 3/uL (0.2-0.9) Eos # (Auto) 0.0 10^3/uL 10^3/ uL (0.0-0.8) Baso # (Auto) 0.1 10^3/uL 10^3/ uL (0.0-0.1) Nucleated RBC % (a uto) 0 % % Nucleated RBCs # 0.0 /100WBC /100W BC Sodium 133 mmol/L L mmol /L (136-145) Potassium 4.1 mmol/L mmol/L (3.5-5.1) Chloride 97 mmol/L L mmol/ L (98-107) Carbon Dioxide 22 mmol/L mmol/L (22-29) Anion Gap 18.1 (5-19) BUN 9 mg/dL mg/dL (8-23) Creatinine 0.5 mg/dL L mg/dL (0.7-1.2) GFR Calculation 166.4 mL/min H mL /min (90-130) Glucose 64 mg/dL L mg/dL (65-115) Calculated Osmolal ity 273 mOsm/kg L mOs m/kg (285-295) Calcium 8.7 mg/dL mg/dL (8.5-10.5) Total Bilirubin 0.8 mg/dL mg/dL (0.15-1.2) AST 53 U/L H U/L (0-40) ALT 34 U/L U/L (0-41) Alkaline Phosphata se 160 IU/L H IU/L (40-130) Total Protein 6.7 g/dL g/dL (6.6-8.7) Albumin 3.1 g/dL L g/dL (3.5-5.2) Globulin 3.6 g/dL g/dL (1.3-4.6) Urine Color Urine Appearance Urine pH Ur Specific Gravit y Urine Protein Urine Glucose (UA) Urine Ketones Urine Blood Urine Nitrate Urine Bilirubin Urine Urobilinogen Ur Leukocyte Latricia ase Ethyl Alcohol 12 mg/dL H mg/dL (0-10) 12/17/20 11:48 WBC RBC Hgb Hct MCV MCH MCHC RDW Plt Count MPV Neut % (Auto) Lymph % (Auto) [place] % (Auto) Eos % (Auto) Baso % (Auto) Neut # (Auto) Lymph # (Auto) [place] # (Auto) Eos # (Auto) Baso # (Auto) Nucleated RBC % (a uto) Nucleated RBCs # Sodium Potassium Chloride Carbon Dioxide Anion Gap BUN Creatinine GFR Calculation Glucose Calculated Osmolal ity Calcium Total Bilirubin AST ALT Alkaline Phosphata se Total Protein Albumin Globulin Urine Color Dark yellow (Yellow) Urine Appearance Clear (CLEAR) Urine pH 5 (5-7) Ur Specific Gravit y 1.025 (1.005-1.030) Urine Protein Neg (Negative) Urine Glucose (UA) Norm (Normal) Urine Ketones 1+ H (Negative) Urine Blood Neg (Negative) Urine Nitrate Negative (Negative) Urine Bilirubin 1+ H (Negative) Urine Urobilinogen 4 mg/dL H mg/dL (Negative) Ur Leukocyte Latricia ase Negative (Negative) Ethyl Alcohol Discharge Plan Discharge Prescriptions: No Action fluoxetine [Prozac] 40 mg capsule 80 mg PO DAILY Qty: 60 RF: 1 bupropion HCl [Wellbutrin XL] 300 mg tablet extended release 24 hr 300 mg PO QAM Qty: 30 RF: 1 bupropion HCl [Wellbutrin XL] 150 mg tablet extended release 24 hr 150 mg PO QAM Qty: 30 RF: 1 metoprolol tartrate 25 mg tablet 25 mg PO BID RF: 0 furosemide [Lasix] 20 mg tablet 20 mg PO DAILY RF: 0 tamsulosin [Flomax] 0.4 mg capsule 0.4 mg PO DAILY RF: 0 pregabalin [Lyrica] 150 mg capsule 150 mg PO TID RF: 0 baclofen 10 mg tablet 10 mg PO TID PRN (Reason: unknown) RF: 0 albuterol sulfate 90 mcg/actuation HFA aerosol inhaler 2 puff INHALATION Q4H PRN (Reason: Shortness Of Breath) RF: 0 famotidine [Pepcid] 20 mg tablet 20 mg PO DAILY RF: 0 cetirizine [Zyrtec] 10 mg tablet 10 mg PO DAILY RF: 0 clopidogrel [Plavix] 75 mg tablet 75 mg PO DAILY RF: 0 tizanidine 2 mg capsule 2 mg PO Q8H PRN (Reason: Muscle Spasm) RF: 0 amlodipine 5 mg tablet 5 mg PO DAILY RF: 0 celecoxib [Celebrex] 200 mg capsule 200 mg PO BID RF: 0 Symbicort 160-4.5 mcg/actuation HFA aerosol inhaler 2 puff INHALATION BID RF: 0 Xarelto 2.5 mg tablet 2.5 mg PO BID RF: 0 hydralazine 25 mg tablet 25 mg PO QID RF: 0 atorvastatin [Lipitor] 40 mg Tablet 40 mg PO QPM RF: 0 potassium chloride 10 mEq capsule, extended release 10 meq PO DAILY RF: 0 albuterol sulfate 2.5 mg /3 mL (0.083 %) solution for nebulization 2.5 mg inhalation Q4H PRN (Reason: Shortness Of Breath) RF: 0 pantoprazole [Protonix] 20 mg Tablet,Delayed Release (Dr/Ec) 20 mg PO DAILY RF: 0 lisinopril 5 mg Tablet 5 mg PO DAILY RF: 0 fluticasone propionate [Flonase Allergy Relief] 50 mcg/actuation Datto,Suspension 2 spray INTRANASAL DAILY RF: 0 Daliresp 250 mcg Tablet 250 mcg PO DAILY RF: 0 trazodone 50 mg Tablet 50 mg PO BEDTIME RF: 0 alendronate 70 mg Tablet 70 mg PO Q7D RF: 0 clonazepam 0.5 mg Tablet 0.5 mg PO DAILY PRN (Reason: Anxiety) RF: 0 cyproheptadine 4 mg Tablet 4 mg PO DAILY RF: 0 Keppra 250 mg Tablet 250 mg PO BID RF: 0 Nitrostat 0.4 mg Tablet, Sublingual 0.4 mg SUBLINGUAL Q5M PRN (Reason: Chest Pain) RF: 0 folic acid 1 mg Tablet 1 mg PO DAILY RF: 0 Spiriva Respimat 2.5 mcg/actuation mist 1 puff INHALATION DAILY RF: 0 Breo Ellipta 100-25 mcg/dose Blister With Device 1 inh INHALATION BID RF: 0 Remeron 15 mg tablet 15 mg PO BEDTIME RF: 0 Coding Level of Care Code ED Undergraduate Intern for [facility] Fwd Exam Comprehensive
[2020-12-17 09:58] LABS: Basophils # 0.1 10^3/uL (0.0-0.1); Basophils % 0.4 %; Eosinophils % 0.2 %; Hematocrit 44.4 % (42.0-52.0); Lymphocytes # 1.4 10^3/uL (0.8-4.8); Lymphocytes % 9.5 %; Mean Corpuscular HGB Conc 33.8 g/dL (30.0-36.0); Mean Corpuscular Hemoglobin 31.4 pg (28.0-34.0); Mean Corpuscular Volume 93.1 fl (80-94); Mean Platelet Volume 8.3 fL (7.4-10.4); Monocytes # 1.8 10^3/uL (0.2-0.9); Monocytes % 11.9 %; Neutrophils # 11.39 10^3/uL (1.8-7.7); Neutrophils % 76.9 %; Nucleated Red Blood Cells % 0 %; Platelet Count 378 10^3/cmm (130-400); Red Blood Count 4.77 10^6/uL (4.1-5.3); Red Cell Distribution Width 12.7 % (12.1-15.1); White Blood Count 14.8 10^3/uL (4.0-10.0)
[2020-12-17 10:27] LABS: Alanine Aminotransferase 34 U/L (0-41); Albumin Level 3.1 g/dL (3.5-5.2); Alkaline Phosphatase 160 IU/L (40-130); Anion Gap 18.1 (5-19); Aspartate Amino Transferase 53 U/L (0-40); Blood Urea Nitrogen 9 mg/dL (8-23); Calcium 8.7 mg/dL (8.5-10.5); Carbon Dioxide 22 mmol/L (22-29); Chloride 97 mmol/L (98-107); Globulin 3.6 g/dL (1.3-4.6); Glomerular Filtration Rate 166.4 mL/min (90-130); Glucose 64 mg/dL (65-115); Osmolality Calculated 273 mOsm/kg (285-295); Potassium 4.1 mmol/L (3.5-5.1); Sodium 133 mmol/L (136-145); Total Bilirubin 0.8 mg/dL (0.15-1.2); Total Protein 6.7 g/dL (6.6-8.7)
--- NOTE | 2020-12-17 10:46 | XR_ITS ---
WS: [id number] PORTABLE CHEST HISTORY: dyspnea/cough COMPARISON: 11/03/2019 Moderate interstitial thickening at the RIGHT lung base. Previous the described atelectasis at the LE FT lung base has resolved. Lobulated soft tissue nodule measuring 12 x 18 mm in the LEFT upper lobe h as not been previously described or seen. No pleural effusion or pneumothorax. Cardiac size: Normal. Mediastinum/Aorta: Mild atherosclerosis aorta. Osteopenia. XR/XR chest 1V portable [id number] IMPRESSION: 1. RIGHT basilar pneumonitis. 2. Chronic emphysema. 3. New lobulated nodule measuring 12 x 18 mm the LEFT upper lobe. Recommend fo llow-up chest CT with IV contrast. This CT can be performed on a nonurgent [facility].
[2020-12-17] MEDS: piperacillin-tazobactam 3.375 GM in sodium chloride 0.9% (plus) 50 ML IV ×2 (11:26→20:09)
[2020-12-17] MEDS: sodium chloride 0.9% 1,000 ML 999 ML IV (11:27)
[2020-12-17 12:15] LABS: Alcohol Level 12 mg/dL (0-10)
[2020-12-17 12:25] LABS: Add Urine Microscopic? NO; Charge for UA Resulting for Rev
[2020-12-17 12:36] LABS: Bilirubin Urine 1+ (Negative); Blood Urine Neg (Negative); Glucose Urine UA Norm (Normal); Ketones Urine 1+ (Negative); Leukocyte Esterase Urine Negative (Negative); Nitrate Urine Negative (Negative); Protein Urine Neg (Negative); Specific Gravity, Urine 1.025 (1.005-1.030); Urine Appearance Clear (CLEAR); Urine Color Dark Yellow (Yellow); Urobilinogen Urine 4 mg/dL (Negative); pH Urine 5 (5-7)
--- NOTE | 2020-12-17 13:04 | PC.PHAR ---
pt unable to verify due to intoxication. Med list verified by external med history, [facility] [place], and last med list entered.
[2020-12-17] MEDS: LORazepam 2 mg/mL INJ 1 mL IVP ×2 (13:38→20:10)
--- NOTE | 2020-12-17 14:37 | P.HP_ITS ---
Providers/Chief Complaint Chief Complaint: FALL, ETOH, BACK PAIN, CONFUSION History of Present Illness 65-year-old male with history of anxiety disorder, major depression, chronic alcohol use, chronic smoker was brought into the ER today by EMS after he was found wandering outside his house using his walker. History is obtained from the ER physician. I tried to call the family but was unable to leave a voicemail and nobody picked up the phone. Most of the history is taken from chart review and conversation with the ER physician. He did tell the ER physician that he drinks a case of beer daily but yesterday had 6 pack of whiskey. His last drink was last night. On my evaluation patient is disheveled, somewhat confused. I am unable to assess for orientation. He is alert and screaming. He states someone is cutting his legs off. He does have a history of peripheral neuropathy. He also claims that something is crawling on his skin. Blood alcohol level was elevated at admission. I am unsure if patient has a history of DTs in the past. There is nothing evident on the charts that I see. Unable to get a hold of family. Unable to get review of systems. Patient was given 2 mg of Ativan by ER physician and he calmed down a little afterwards. ER course temperature 97.8, pulse rate 98, respiratory 22, blood pressure 134/90, pulse ox 95%. WBC elevated at 14.8. He is not on oxygen and is currently on room air. Urinalysis showed 1+ ketones. Chest x-ray showed right basilar pneumonitis, chronic emphysema, new lobulated nodule measuring 12 x 18 mm in left upper lobe. Follow-up recommended with CT with IV contrast on a nonurgent basis. Patient did complain of back pain therefore lumbar CT spine was also done which showed a healed left transverse process fracture at L2, L3, L4. No acute disc herniations identified. Review of Systems General: Reports: ROS unobtainable due to mental status Medications/Allergies Home Medications Medication Instructions Recorded Confirmed Last Taken Type albuterol sulfate 90 mcg/actuation 2 puff INHALATION Q4H PRN gm 04/02/19 12/17/20 Unknown History aerosol inhaler amlodipine 5 mg tablet 5 mg PO DAILY 04/02/19 12/17/20 Unknown History baclofen 10 mg tablet 10 mg PO TID PRN 04/02/19 12/17/20 Unknown History budesonide-formoterol HFA 160 2 puff INHALATION BID 04/02/19 12/17/20 Unknown History mcg-4.5 mcg/actuation aerosol inhaler celecoxib 200 mg capsule 200 mg PO BID 04/02/19 12/17/20 Unknown History cetirizine 10 mg tablet 10 mg PO DAILY tab 04/02/19 12/17/20 Unknown History clopidogrel 75 mg tablet 75 mg PO DAILY 04/02/19 12/17/20 Unknown History famotidine 20 mg tablet 20 mg PO DAILY 04/02/19 12/17/20 Unknown History furosemide 20 mg tablet 20 mg PO DAILY 04/02/19 12/17/20 Unknown History hydralazine 25 mg tablet 25 mg PO QID 04/02/19 12/17/20 Unknown History metoprolol tartrate 25 mg tablet 25 mg PO BID 04/02/19 12/17/20 Unknown History pregabalin 150 mg capsule 150 mg PO TID 04/02/19 12/17/20 Unknown History rivaroxaban 2.5 mg tablet 2.5 mg PO BID 04/02/19 12/17/20 Unknown History tamsulosin 0.4 mg capsule 0.4 mg PO DAILY 04/02/19 12/17/20 Unknown History tizanidine 2 mg capsule 2 mg PO Q8H PRN 04/02/19 12/17/20 Unknown History albuterol sulfate 2.5 mg INHALATION Q4H PRN 11/03/19 12/17/20 Unknown History atorvastatin [Lipitor] 40 mg PO QPM 11/03/19 12/17/20 Unknown History fluticasone propionate [Flonase 2 spray INTRANASAL DAILY 11/03/19 12/17/20 Unknown History Allergy Relief] lisinopril 5 mg PO DAILY 11/03/19 12/17/20 Unknown History pantoprazole [Protonix] 20 mg PO DAILY 11/03/19 12/17/20 Unknown History potassium chloride 10 meq PO DAILY 11/03/19 12/17/20 Unknown History roflumilast [Daliresp] 250 mcg PO DAILY 11/03/19 12/17/20 Unknown History bupropion HCl 150 mg 24 hr tablet, 150 mg PO QAM #30 tab 12/09/20 12/17/20 Unknown Rx extended release bupropion HCl 300 mg 24 hr tablet, 300 mg PO QAM #30 tab 12/09/20 12/17/20 Unkno wn Rx extended release fluoxetine 40 mg capsule 80 mg PO DAILY #60 cap 12/09/20 12/17/20 Unknown Rx Remeron 15 mg PO BEDTIME 12/17/20 12/17/20 Unknown History alendronate 70 mg PO Q7D 12/17/20 12/17/20 Unknown History clonazepam 0.5 mg PO DAILY PRN 12/17/20 12/17/20 Unknown History cyproheptadine 4 mg PO DAILY 12/17/20 12/17/20 Unknown History fluticasone furoate-vilanterol 1 inh INHALATION BID 12/17/20 12/17/20 Unknown History [Breo Ellipta] folic acid 1 mg PO DAILY 12/17/20 12/17/20 Unknown History levetiracetam [Keppra] 250 mg PO BID 12/17/20 12/17/20 Unknown History nitroglycerin [Nitrostat] 0.4 mg SUBLINGUAL Q5M PRN 12/17/20 12/17/20 Unknown History tiotropium bromide [Spiriva 1 puff INHALATION DAILY 12/17/20 12/17/20 Unknown History Respimat] trazodone 50 mg PO BEDTIME 12/17/20 12/17/20 Unknown History Allergies Allergy/AdvReac Type Severity Reaction Status Date / Time No Known Allergies Allergy Verified 11/03/19 14:45 PFSH Acute PFSH: Medical History Alcohol dependence, uncomplicated Generalized anxiety disorder HTN (hypertension) Major depressive disorder, recurrent severe without psychotic features Nicotine dependence, cigarettes, with other nicotine-induced disorders Social History Smoking and tobacco status: current every day smoker cigarettes Smoking risk assessment/counseling performed?: Yes Tobacco counseling given: counseling >3 minutes Vitals/I&O/Wt Last Vital Signs Temp 97.8 F 12/17/20 09:56 Pulse 98 12/17/20 13:02 Resp 22 H 12/17/20 08:47 BP 134/90 12/17/20 13:02 Pulse Ox 95 12/17/20 13:02 Weight last 48 hrs Weight 44.452 kg Physical Exam Narrative: EXAM NARRATIVE: General: Alert, unable to check for orientation, patient seen feeling his arms and being slightly combative when I try to approach him. He keeps screaming and complaining of pain in his lower extremities singular hoax there. HEENT: Normocephalic, atraumatic, EOMI, breathing room air Cardio: Regular rate rhythm, normal S1-S2, Respiratory: No gross wheezes rhonchi appreciated, generally clear to auscultation. Unable to auscultate the posterior chest. GI: Abdomen soft, nontender, unable to assess for bowel sounds due to patient moving too much. Extremities: No gross edema or cyanosis. Patient did not let me palpate his lower extremities. Data : 12/17/20 09:48 12/17/20 09:48 A&P Assessment and plan (1) HTN (hypertension): Status: Acute (2) Major depressive disorder, recurrent severe without psychotic features: Status: Acute (3) Generalized anxiety disorder: Status: Acute (4) Alcohol abuse: Status: Acute (5) Aspiration pneumonia: Status: Acute Additional A&P Information #Right lower lobe pneumonia, possible aspiration #Chronic alcohol abuse #Alcohol intoxication #Toxic metabolic encephalopathy #Alcohol withdrawal #Left upper lobe pulmonary nodule -We will start patient on CIWA protocol ?We will continue Keppra, metoprolol tartrate, lisinopril, amlodipine, Lasix, folic acid, thiamine ?We will start on DuoNebs every 4 hours -WBC elevated ?We will check bacterial antigens Check MRSA nares swab Urine culture stat Blood culture stat Patient is not hypoxic and is on room air. Continue patient on Zosyn We will have patient follow-up well with pulmonology at discharge for left upper pulmonary nodule. We will start him on a regular diet Fluids: Normal saline 100 cc/h Electrolyte: Replete as needed Nutrition: Regular diet Activity: As tolerated DVT prophylaxis: Lovenox Attestations Medical Necessity Statement*: > 48 hr stay Time Spent in Patient Care: 16 - 35 minutes Coding Level of Care Code Acute [employer] Inspector for g Fwd Diagnoses HTN (hypertension) I10 Major depressive disorder, recurrent severe without psychotic features F33.2 Generalized anxiety disorder F41.1 Alcohol abuse F10.10 Aspiration pneumonia J69.0
[2020-12-17 15:16] LABS: Lactic Sepsis W/Reflex 1.5 mmol/L (0.5-2.2)
[2020-12-17] MEDS: D5-NS 0.45% + KCL 20 mEq 20 MEQ/1,000 ML BAG 100 MEQ IV (20:09)
[2020-12-17] MEDS: rivaroxaban 10 mg Tablet 2.5 MG PO (20:10)
[2020-12-17] MEDS: mirtazapine 15 mg Tablet PO (20:10)
[2020-12-17] MEDS: levETIRAcetam 500 mg Tablet 250 MG PO (20:10)
[2020-12-17] MEDS: trazodone 50 mg Tablet PO (20:10)
[2020-12-17] MEDS: metoprolol tartrate 25 mg Tablet PO (20:10)
[2020-12-17] MEDS: atorvastatin 40 mg Tablet PO (20:10)
[2020-12-17 20:37] LABS: Procalcitonin 0.09 ng/mL (0-0.5)
[2020-12-17] MEDS: budesonide 0.5 mg/2 mL Neb INHALATION (22:00)
[2020-12-17] MEDS: ipratropium-albuterol 3 mL Neb INHALATION ×2 (22:00)
[2020-12-18] VITALS (13 sets, daily range): BP systolic 135–167; BP diastolic 79–98; PULSE 75–92; RESP 16–22; TEMP 36.3–36.9; O2SAT 89–99
[2020-12-18] MEDS: piperacillin-tazobactam 3.375 GM in sodium chloride 0.9% (plus) 50 ML IV ×3 (04:32→21:42)
[2020-12-18] MEDS: D5-NS 0.45% + KCL 20 mEq 20 MEQ/1,000 ML BAG 100 MEQ IV ×2 (05:54→21:41)
[2020-12-18 06:41] LABS: Basophils % 0.4 %; Eosinophils # 0.2 10^3/uL (0.0-0.8); Eosinophils % 1.7 %; Hematocrit 52.4 % (42.0-52.0); Hemoglobin 17.5 g/dL (11.7-16.6); Lymphocytes # 1.3 10^3/uL (0.8-4.8); Lymphocytes % 12.1 %; Mean Corpuscular HGB Conc 33.4 g/dL (30.0-36.0); Mean Corpuscular Hemoglobin 31.7 pg (28.0-34.0); Mean Corpuscular Volume 94.9 fl (80-94); Mean Platelet Volume 8.7 fL (7.4-10.4); Monocytes # 1.3 10^3/uL (0.2-0.9); Monocytes % 12.5 %; Neutrophils # 7.72 10^3/uL (1.8-7.7); Neutrophils % 72.4 %; Nucleated Red Blood Cells % 0 %; Platelet Count 245 10^3/cmm (130-400); Red Blood Count 5.52 10^6/uL (4.1-5.3); White Blood Count 10.7 10^3/uL (4.0-10.0)
[2020-12-18] MEDS: ipratropium-albuterol 3 mL Neb INHALATION ×4 (07:46→19:53)
[2020-12-18] MEDS: budesonide 0.5 mg/2 mL Neb INHALATION ×2 (07:46→19:53)
[2020-12-18] MEDS: roflumilast 500 mcg Tablet 250 MCG PO (08:47)
[2020-12-18] MEDS: pantoprazole DR 40 mg Tablet PO (08:47)
[2020-12-18] MEDS: thiamine 100 mg Tablet PO (08:47)
[2020-12-18] MEDS: lisinopril 5 mg Tablet PO (08:48)
[2020-12-18] MEDS: levETIRAcetam 500 mg Tablet 250 MG PO ×2 (08:48→17:47)
[2020-12-18] MEDS: folic acid 1 mg Tablet PO (08:48)
[2020-12-18] MEDS: FUROsemide 20 mg Tablet PO (08:48)
[2020-12-18] MEDS: amlodipine 5 mg Tablet PO (08:49)
[2020-12-18] MEDS: metoprolol tartrate 25 mg Tablet PO ×2 (08:49→17:48)
[2020-12-18] MEDS: tamsulosin 0.4 mg Capsule PO (08:49)
[2020-12-18] MEDS: famotidine 20 mg Tablet PO (08:49)
[2020-12-18] MEDS: clopidogrel 75 mg Tablet PO (08:50)
[2020-12-18] MEDS: multivitamin therapeutic Tablet 1 TAB PO (08:50)
[2020-12-18] MEDS: rivaroxaban 10 mg Tablet 2.5 MG PO ×2 (08:51→17:48)
[2020-12-18 10:03] LABS: INR 1.22 (0.8-1.2)
[2020-12-18 10:04] LABS: Estmated Average Glucose 91; Hemoglobin A1C 4.8 % (4.0-6.0)
--- NOTE | 2020-12-18 12:13 | P.PN_ITS ---
Subjective Subjective: Interval history: Seen this morning. Patient quite cooperative today. He tells me he is comfortable right now he does not have any abdominal pain or chest pain or shortness of breath. He is less confused compared to when I saw him in the ER yesterday. However he is unable to provide any more history at this point. He says he wants to sleep. Vitals/I&O/Wt Last Vital Signs Temp 98.2 F 12/18/20 11:26 Pulse 81 12/18/20 11:48 Resp 20 H 12/18/20 11:48 BP 149/79 12/18/20 11:26 Pulse Ox 94 12/18/20 11:48 12/17/20 12/18/20 12/18/20 22:59 06:59 14:59 Intake Total 1024 120 / 120 Balance 1024 120 / 120 Weight last 48 hrs Weight 46.295 kg Weight 44.452 kg Physical Exam Narrative: EXAM NARRATIVE: General: Alert, oriented x1. HEENT: Normocephalic, atraumatic, EOMI, breathing room air Cardio: Regular rate rhythm, normal S1-S2, Respiratory: Very coarse breath sounds anterior and posterior lung wu, gross rhonchi present. GI: Abdomen soft, nontender, nondistended, bowel sounds present and normoactive. Extremities: No gross edema or cyanosis. Data : 12/18/20 05:45 12/17/20 09:48 Micro: Microbiology 12/17/20 19:53 Blood Culture - Preliminary Blood SPECIMEN COLLECTED 12/17/20 19:53 Blood Culture - Preliminary Blood SPECIMEN COLLECTED A&P Assessment and plan (1) HTN (hypertension): Status: Acute (2) Major depressive disorder, recurrent severe without psychotic features: Status: Acute (3) Generalized anxiety disorder: Status: Acute (4) Alcohol abuse: Status: Acute (5) Aspiration pneumonia: Status: Acute Additional A&P Information #Right lower lobe pneumonia, possible aspiration #Chronic alcohol abuse #Alcohol intoxication #Toxic metabolic encephalopathy #Alcohol withdrawal #Left upper lobe pulmonary nodule -We will start patient on CIWA protocol ?We will continue Keppra, metoprolol tartrate, lisinopril, amlodipine, Lasix, folic acid, thiamine ?We will start on DuoNebs every 4 hours -WBC elevated ?We will check bacterial antigens MRSA nares negative, bacterial antigens pending. Urine culture stat -report pending Blood culture stat Patient is not hypoxic and is on room air. Continue patient on Zosyn We will have patient follow-up well with pulmonology at discharge for left upper pulmonary nodule. 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
[2020-12-18] MEDS: atorvastatin 40 mg Tablet PO (17:48)
[2020-12-18] MEDS: azithromycin 500 MG in sodium chloride 0.9% 250 ML 250 MG IV (17:57)
[2020-12-18] MEDS: mirtazapine 15 mg Tablet PO (21:41)
[2020-12-18] MEDS: trazodone 50 mg Tablet PO (21:41)
[2020-12-19] VITALS (14 sets, daily range): BP systolic 99–156; BP diastolic 59–87; PULSE 74–98; RESP 16–22; TEMP 36.5–37.1; O2SAT 91–99
--- NOTE | 2020-12-19 03:29 | CTR_ITS ---
PROCEDURE INFORMATION: Exam: CT Head Without Contrast Exam date and time: 12/19/2020 3:29 AM Age: 65 years old Clinical indication: Injury or trauma; Fall; Blunt trauma (contusions or hematomas); Without loss of consciousness; Additional info: Fall with head injury TECHNIQUE: Imaging protocol: Computed tomography of the head without contrast. Radiation optimization: All CT scans at this facility use at least one of these dose optimization techniques: automated exposure control; mA and/or kV adjustment per patient size (includes targeted exams where dose is matched to clinical indication); or iterative reconstruction. COMPARISON: CT head wo con* [id number] 12/17/2020 9:11 AM RADIATION DOSE METRICS: Total DLP (mGy-cm): 759.04 FINDINGS: Brain: No acute intracranial hemorrhage or mass effect. There is mild decreased attenuation in the periventricular white matter, likely from microvascular disease. No definite acute infarct by CT. Cerebral ventricles: Ventricle size is normal for age. Paranasal sinuses: Included paranasal sinuses are essentially clear. Mastoid air cells: No significant acute finding. Vasculature: Vascular calcifications in the internal carotid and vertebral basilar systems. Bones/joints: No definite acute skull fracture. Soft tissues: Evidence for soft tissue injury/scalp hematoma in the right parietal region. CT/CT head wo con* [id number] IMPRESSION: 1. No acute intracranial hemorrhage or mass effect. 2. Other findings discussed above. Radiation Dose CTDIVOL = (mGy): DLP = 759.04 (mGy-cm)
--- NOTE | 2020-12-19 04:07 | PC.NURSE ---
At approximately 0315 Nursing staff heard thud from nurses station and heard respiratory yell help, upon entering the room patient was found laying on the floor on his right side, pt stated he hit his head and he was noted to have a palpable contusion, a scrape to the right elbow and back were also noted, pt was assisted back to bed with two assist, vitals signs were obtained, and it was noted that he had no change in LOC and ALISA was intact, physician was notified and a N/O for a head CT w/o contrast was given, family to be notified
[2020-12-19] MEDS: buPROPion XL (24 HR) 150 mg Tablet PO (05:54)
[2020-12-19] MEDS: piperacillin-tazobactam 3.375 GM in sodium chloride 0.9% (plus) 50 ML IV ×3 (05:54→21:45)
[2020-12-19] MEDS: buPROPion XL (24 HR) 300 mg Tablet PO (05:54)
[2020-12-19] MEDS: ipratropium-albuterol 3 mL Neb INHALATION ×4 (07:46→20:12)
[2020-12-19] MEDS: budesonide 0.5 mg/2 mL Neb INHALATION ×2 (07:46→20:12)
[2020-12-19] MEDS: fluoxetine 20 mg Capsule 80 MG PO (09:29)
[2020-12-19] MEDS: famotidine 20 mg Tablet PO (09:30)
[2020-12-19] MEDS: rivaroxaban 10 mg Tablet 2.5 MG PO ×2 (09:30→18:10)
[2020-12-19] MEDS: roflumilast 500 mcg Tablet 250 MCG PO (09:31)
[2020-12-19] MEDS: folic acid 1 mg Tablet PO (09:31)
[2020-12-19] MEDS: thiamine 100 mg Tablet PO (09:31)
[2020-12-19] MEDS: tamsulosin 0.4 mg Capsule PO (09:31)
[2020-12-19] MEDS: FUROsemide 20 mg Tablet PO (09:31)
[2020-12-19] MEDS: lisinopril 5 mg Tablet PO (09:31)
[2020-12-19] MEDS: multivitamin therapeutic Tablet 1 TAB PO (09:31)
[2020-12-19] MEDS: clopidogrel 75 mg Tablet PO (09:31)
[2020-12-19] MEDS: pantoprazole DR 40 mg Tablet PO (09:31)
[2020-12-19] MEDS: levETIRAcetam 500 mg Tablet 250 MG PO ×2 (09:31→18:09)
[2020-12-19] MEDS: metoprolol tartrate 25 mg Tablet PO ×2 (09:31→18:10)
[2020-12-19] MEDS: amlodipine 5 mg Tablet PO (09:35)
[2020-12-19] MEDS: D5-NS 0.45% + KCL 20 mEq 20 MEQ/1,000 ML BAG 100 MEQ IV ×2 (10:55→19:43)
[2020-12-19] MEDS: atorvastatin 40 mg Tablet PO (18:09)
[2020-12-19] MEDS: tizanidine 4 mg Tablet 2 MG PO (18:12)
[2020-12-19] MEDS: azithromycin 500 MG in sodium chloride 0.9% 250 ML 250 MG IV (19:43)
--- NOTE | 2020-12-19 20:20 | P.PN_ITS ---
Subjective Subjective: Interval history: Seen and examined today sitting up in a recliner. He is able to talk to me and have a conversation. He is significantly improved compared to admission. Not scoring high on CIWA either. Not showing any signs of withdrawal. Breathing is also better. He is sitting and having breakfast. Patient does tell me he only drinks 3-4 beers a day. He does not drink a case of beers. He used to drink 24 a day but not anymore. He has quit that since a long time ago. He denies having any seizures or withdrawal if he does not drink. Vitals/I&O/Wt Last Vital Signs Temp 97.7 F 12/19/20 16:00 Pulse 88 12/19/20 16:00 Resp 17 12/19/20 16:00 BP 116/72 12/19/20 16:00 Pulse Ox 92 12/19/20 16:00 12/19/20 12/19/20 12/19/20 06:59 14:59 22:59 Intake Total 90 / 1550 1170 / 1170 1250 / 2420 Balance 90 / 1550 1170 / 1170 1250 / 2420 Physical Exam Narrative: EXAM NARRATIVE: General: Alert, oriented x 2. Not oriented to time. HEENT: Normocephalic, atraumatic, EOMI, breathing room air Cardio: Regular rate rhythm, normal S1-S2, Respiratory: Coarse breath sounds tender anterior and posterior lung wu but much improved compared to yesterday. He is good adequate bilateral air entry. No longer diminished and tight. GI: Abdomen soft, nontender, nondistended, bowel sounds present and normoactive. Extremities: No gross edema or cyanosis. Data : 12/18/20 05:45 12/17/20 09:48 Micro: Microbiology 12/19/20 01:50 Legionella Urinary Antigen - Final Urine,Voided Bacterial Antigens - Final 12/17/20 19:53 Blood Culture - Preliminary Blood NEGATIVE TO DATE 12/17/20 19:53 Blood Culture - Preliminary Blood NEGATIVE TO DATE A&P Assessment and plan (1) HTN (hypertension): Status: Acute (2) Major depressive disorder, recurrent severe without psychotic features: Status: Acute (3) Generalized anxiety disorder: Status: Acute (4) Alcohol abuse: Status: Acute (5) Aspiration pneumonia: Status: Acute Additional A&P Information #Right lower lobe pneumonia, possible aspiration #Chronic alcohol abuse #Alcohol intoxication #Toxic metabolic encephalopathy #Alcohol withdrawal #Left upper lobe pulmonary nodule -family needs to be updated about this. -Continue CIWA protocol. ?We will continue Keppra, metoprolol tartrate, lisinopril, amlodipine, Lasix, folic acid, thiamine ?We will start on DuoNebs every 4 hours -Bacterial antigens negative. MRSA nares negative, Urine culture stat -report pending Blood culture negative to date Patient is requiring nasal cannula at this point but was not requiring any in the ER.. He will need home oxygen evaluation at discharge. Continue patient on Zosyn We will have patient follow-up with pulmonology at discharge for left upper pulm onary nodule. #COPD exacerbation Continue Solu-Medrol 40 every 8, azithromycin. He can potentially be discharged to home on oral antibiotics and oral steroids. He will need follow-up with pulmonology at discharge for pulmonary nodule. Family needs to be updated. I did try calling but unable to get a hold of anybody. I also heard at the next nursing station that the daughter did call back but I missed the call. We will start him on a regular diet Fluids: Normal saline 100 cc/h Electrolyte: Replete as needed Nutrition: Regular diet Activity: As tolerated DVT prophylaxis: Lovenox Attestations Medical Necessity Statement*: Less than 24-hour stay at this point. Time Spent in Patient Care: 16 - 35 minutes Coding Level of Care Code Acute Patient Safety Coordinator for g Fwd Diagnoses HTN (hypertension) I10 Major depressive disorder, recurrent severe without psychotic features F33.2 Generalized anxiety disorder F41.1 Alcohol abuse F10.10 Aspiration pneumonia J69.0
[2020-12-19] MEDS: mirtazapine 15 mg Tablet PO (21:01)
[2020-12-19] MEDS: trazodone 50 mg Tablet PO (21:01)
[2020-12-19 21:06] LABS: Glucose Point of Care 262 mg/dL (70-110)
[2020-12-20] VITALS: BP 117/69; PULSE 79; RESP 17; TEMP 36.7; O2SAT 91
[2020-12-20 04:00] VITALS: BP 140/76; PULSE 79; RESP 16; TEMP 36.8; O2SAT 91
--- NOTE | 2020-12-20 05:29 | PC.NURSE ---
SHIFT SUMMARY Has rested well tonight. Has denied pain or discomfort. Oriented. CIWA scores remain low. Does have some tremors but says this actually is not new. IV infusing without difficulty and receiving IV antibiotics as ordered. Voiding per urinal. Has had no O2 on tonight and denies SOB.
[2020-12-20] MEDS: buPROPion XL (24 HR) 150 mg Tablet PO (05:42)
[2020-12-20] MEDS: buPROPion XL (24 HR) 300 mg Tablet PO (05:42)
[2020-12-20] MEDS: D5-NS 0.45% + KCL 20 mEq 20 MEQ/1,000 ML BAG 100 MEQ IV (05:44)
[2020-12-20] MEDS: piperacillin-tazobactam 3.375 GM in sodium chloride 0.9% (plus) 50 ML IV (05:44)
[2020-12-20 08:00] VITALS: BP 145/71; PULSE 85; RESP 16; TEMP 36.9; O2SAT 95
[2020-12-20] MEDS: rivaroxaban 10 mg Tablet 2.5 MG PO (08:19)
[2020-12-20] MEDS: folic acid 1 mg Tablet PO (08:19)
[2020-12-20] MEDS: pantoprazole DR 40 mg Tablet PO (08:19)
[2020-12-20] MEDS: roflumilast 500 mcg Tablet 250 MCG PO (08:20)
[2020-12-20] MEDS: tizanidine 4 mg Tablet 2 MG PO (08:20)
[2020-12-20] MEDS: levETIRAcetam 500 mg Tablet 250 MG PO (08:20)
[2020-12-20] MEDS: clopidogrel 75 mg Tablet PO (08:20)
[2020-12-20] MEDS: FUROsemide 20 mg Tablet PO (08:20)
[2020-12-20] MEDS: fluoxetine 20 mg Capsule 80 MG PO (08:21)
[2020-12-20] MEDS: tamsulosin 0.4 mg Capsule PO (08:21)
[2020-12-20] MEDS: lisinopril 5 mg Tablet PO (08:21)
[2020-12-20] MEDS: amlodipine 5 mg Tablet PO (08:21)
[2020-12-20] MEDS: famotidine 20 mg Tablet PO (08:21)
[2020-12-20] MEDS: metoprolol tartrate 25 mg Tablet PO (08:21)
[2020-12-20] MEDS: thiamine 100 mg Tablet PO (08:21)
[2020-12-20] MEDS: multivitamin therapeutic Tablet 1 TAB PO (08:21)
--- NOTE | 2020-12-20 09:21 | PC.SOCIAL ---
IMM Update Pg. 2 of IMM updated and reviewed with patient, who verbalized understanding. Copy provided.
[2020-12-20 11:03] VITALS: BP 127/77; PULSE 79; RESP 16; TEMP 36.8; O2SAT 92
--- NOTE | 2020-12-20 11:26 | PM.DCS ---
Discharge Providers Date of Admission: 12/17/20 12:17 Date of Discharge: December 20, 2020 Attending Provider at Admission: Vania Gonzalez MD Attending Provider at Discharge: Vanesa Malone MD Diagnoses at Discharge Discharge Diagnosis (1) HTN (hypertension): Status: Acute (2) Major depressive disorder, recurrent severe without psychotic features: Status: Acute (3) Generalized anxiety disorder: Status: Acute (4) Alcohol abuse: Status: Acute (5) Aspiration pneumonia: Status: Acute Reason for Visit Reason for Visit: FALL, ETOH, BACK PAIN, CONFUSION Hospital Course Hospital Course History of Present Illness by Dr Gonzalez 65-year-old male with history of anxiety disorder, major depression, chronic alcohol use, chronic smoker was brought into the ER today by EMS after he was found wandering outside his house using his walker. History is obtained from the ER physician. I tried to call the family but was unable to leave a voicemail and nobody picked up the phone. Most of the history is taken from chart review and conversation with the ER physician. He did tell the ER physician that he drinks a case of beer daily but yesterday had 6 pack of whiskey. His last drink was last night. On my evaluation patient is disheveled, somewhat confused. I am unable to assess for orientation. He is alert and screaming. He states someone is cutting his legs off. He does have a history of peripheral neuropathy. He also claims that something is crawling on his skin. Blood alcohol level was elevated at admission. I am unsure if patient has a history of DTs in the past. There is nothing evident on the charts that I see. Unable to get a hold of family. Unable to get review of systems. Patient was given 2 mg of Ativan by ER physician and he calmed down a little afterwards. ER course temperature 97.8, pulse rate 98, respiratory 22, blood pressure 134/90, pulse ox 95%. WBC elevated at 14.8. He is not on oxygen and is currently on room air. Urinalysis showed 1+ ketones. Chest x-ray showed right basilar pneumonitis, chronic emphysema, new lobulated nodule measuring 12 x 18 mm in left upper lobe. Follow-up recommended with CT with IV contrast on a nonurgent basis. Patient did complain of back pain therefore lumbar CT spine was also done which showed a healed left transverse process fracture at L2, L3, L4. No acute disc herniations identified. Hosp course: Patient was admitted for evaluation of altered mental status/confusion. He was diagnosed with aspiration pneumonia considering history of alcohol abuse. Right lower lobe pneumonia was treated with Zosyn, he remained afebrile no signs of sepsis, ulcers were negative, MRSA nares negative, urine antigens were also unremarkable. His mentation did improve with IV fluid hydration, antibiotics. He was kept on thiamine and folic acid as well. He did not require any Ativan he did not show any signs of alcohol withdrawal. Patient stated that he does have history of alcohol abuse but lately he has cut down significantly on his alcohol intake. For his mild expiratory wheezing related to COPD exacerbation he will be treated with levofloxacin 5-day regimen. He does take multiple antidepressants and SNRI for his neuropathic lower extremity pain. 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 For his left pulmonary nodule, significant weight loss he was referred to sales donor recruitment representative Dr. Aguilera at the time of discharge. Physical therapist deemed him stable to return home, patient does have a walker with wheels at home. Physical Exam Narrative: EXAM NARRATIVE: Pleasant cooperative male EOMI, PERRLA Nonfocal neuro exam Bilateral breath sounds with mild wheezing No acute respiratory distress Patient was saturating well at baseline oxygen levels Abdomen soft No signs of cellulitis Discharge Data Data Completed and Pending: Completed Studies During Hospitalization Category Date Time Status CT head wo con* 7 0450 Stat Cat Scan 12/17/20 08:[address] head wo con* 7 0450 Stat Cat Scan 12/19/20 03:[address] lumbar spine w o con* 56960 Urgen t Cat Scan 12/17/20 08:49 Completed XR chest 1V rosangela ble 65502 Stat Exams 12/17/20 10:46 Completed Pending at discharge Category Date Time Status Bacterial Antigen Stat Lab 12/19/20 01:50 Results Blood Culture Sta t Lab 12/17/20 19:53 Results Legionella Antige n STAT Stat Lab 12/19/20 01:50 Results Sputum Culture an d Gram Stain Stat Lab 12/17/20 18:53 Uncollected Urine Culture Sta t Lab 12/19/20 01:50 Results Labs from last 24 hours 12/19/20 20:56 POC Glucose 262 H Vitals: Last Vital Signs Temp 98.3 F 12/20/20 11:03 Pulse 79 12/20/20 11:03 Resp 16 12/20/20 11:03 BP 127/77 12/20/20 11:03 Pulse Ox 92 12/20/20 11:03 Discharge Plan Discharge Patient Disposition: Home Condition: Stable Prescriptions: New Medrol (Cale) 4 mg tablets,dose pack See Rx Instructions .ROUTE .COMPLEX Qty: 21 RF: 0 levofloxacin 750 mg tablet 750 mg PO DAILY 7 Days Qty: 7 RF: 0 Continued fluoxetine [Prozac] 40 mg capsule 80 mg PO DAILY Qty: 60 RF: 1 bupropion HCl [Wellbutrin XL] 300 mg tablet extended release 24 hr 300 mg PO QAM Qty: 30 RF: 1 bupropion HCl [Wellbutrin XL] 150 mg tablet extended release 24 hr 150 mg PO QAM Qty: 30 RF: 1 metoprolol tartrate 25 mg tablet 25 mg PO BID RF: 0 furosemide [Lasix] 20 mg tablet 20 mg PO DAILY RF: 0 tamsulosin [Flomax] 0.4 mg capsule 0.4 mg PO DAILY RF: 0 pregabalin [Lyrica] 150 mg capsule 150 mg PO TID RF: 0 baclofen 10 mg tablet 10 mg PO TID PRN (Reason: unknown) RF: 0 albuterol sulfate 90 mcg/actuation HFA aerosol inhaler 2 puff INHALATION Q4H PRN (Reason: Shortness Of Breath) RF: 0 famotidine [Pepcid] 20 mg tablet 20 mg PO DAILY RF: 0 cetirizine [Zyrtec] 10 mg tablet 10 mg PO DAILY RF: 0 clopidogrel [Plavix] 75 mg tablet 75 mg PO DAILY RF: 0 tizanidine 2 mg capsule 2 mg PO Q8H PRN (Reason: Muscle Spasm) RF: 0 amlodipine 5 mg tablet 5 mg PO DAILY RF: 0 Xarelto 2.5 mg tablet 2.5 mg PO BID RF: 0 atorvastatin [Lipitor] 40 mg Tablet 40 mg PO QPM RF: 0 potassium chloride 10 mEq capsule, extended release 10 meq PO DAILY RF: 0 albuterol sulfate 2.5 mg /3 mL (0.083 %) solution for nebulization 2.5 mg inhalation Q4H PRN (Reason: Shortness Of Breath) RF: 0 pantoprazole [Protonix] 20 mg Tablet,Delayed Release (Dr/Ec) 20 mg PO DAILY RF: 0 fluticasone propionate [Flonase Allergy Relief] 50 mcg/actuation [place],Suspension 2 spray INTRANASAL DAILY RF: 0 Daliresp 250 mcg Tablet 250 mcg PO DAILY RF: 0 alendronate 70 mg Tablet 70 mg PO Q7D RF: 0 clonazepam 0.5 mg Tablet 0.5 mg PO DAILY PRN (Reason: Anxiety) RF: 0 Keppra 250 mg Tablet 250 mg PO BID RF: 0 Nitrostat 0.4 mg Tablet, Sublingual 0.4 mg SUBLINGUAL Q5M PRN (Reason: Chest Pain) RF: 0 folic acid 1 mg Tablet 1 mg PO DAILY RF: 0 Breo Ellipta 100-25 mcg/dose Blister With Device 1 inh INHALATION BID RF: 0 Remeron 15 mg tablet 15 mg PO BEDTIME RF: 0 Symbicort 160-4.5 mcg/actuation HFA aerosol inhaler 2 puff INHALATION BID Qty: 0 RF: 2 Spiriva Respimat 2.5 mcg/actuation mist 1 puff INHALATION DAILY Qty: 0 RF: 3 Changed lisinopril 5 mg Tablet 10 mg PO DAILY Qty: 30 RF: 3 Discontinued celecoxib [Celebrex] 200 mg capsule 200 mg PO BID RF: 0 hydralazine 25 mg tablet 25 mg PO QID RF: 0 trazodone 50 mg Tablet 50 mg PO BEDTIME RF: 0 cyproheptadine 4 mg Tablet 4 mg PO DAILY RF: 0 Discharge Orders: Discharge Order (Routine); Ordered 12/20/20 Ordered By: Vanesa Malone Referrals: Candice Aguilera MD [Physician] - 01/03/21 8:45 am Discharge Diet: Cardiac Discharge Activity: Increase activity as tolerated Patient Instructions: Alcoholism, Methylprednisolone (By mouth) (Medrol, Medrol Dosepak), Levofloxacin (By mouth), Pneumonitis (DC), Opioid Safety Discharge Attestations Time Spent in Discharge Care*: less than 30 min Quality Metrics Clinical Quality Measures During this hospital stay, did patient experience: None Coding Level of Care Code Acute Chg FW DC note Diagnoses HTN (hypertension) I10 Major depressive disorder, recurrent severe without psychotic features F33.2 Generalized anxiety disorder F41.1 Alcohol abuse F10.10 Aspiration pneumonia J69.0
[2020-12-20] MEDS: ipratropium-albuterol 3 mL Neb INHALATION (11:42)
[2020-12-20 11:43] VITALS: PULSE 83; RESP 18; O2SAT 95
[2020-12-20 14:10] VITALS: PULSE 83; RESP 18; O2SAT 95
== END 2020-12-20 14:11 | disposition home or self-care (01) ==
LOC: ER 08:55 → MEDSURG 12-20 06:42
PROVIDERS: Admitting Provider Internal Medicine; Emergency Provider Family Medicine; Visit Provider Internal Medicine
DX: J69.0 Pneumonitis due to inhalation of food and vomit (principal); I10 Essential (primary) hypertension; F33.2 Major depressive disorder, recurrent severe without psychotic features; F41.1 Generalized anxiety disorder; G92.8 Other toxic encephalopathy; F10.20 Alcohol dependence, uncomplicated; Y90.0 Blood alcohol level of less than 20 mg/100 ml; R91.8 Other nonspecific abnormal finding of lung field; J44.1 Chronic obstructive pulmonary disease with (acute) exacerbation; G62.9 Polyneuropathy, unspecified; F17.210 Nicotine dependence, cigarettes, uncomplicated; Z79.899 Other long term (current) drug therapy
CPT/HCPCS: 36416; 70450; 71045; 72131; 80053; 80307; 81003; 82962; 83036; 83605; 84145; 85025; 85610; 86403; 87040; 87086; 87449; 87641; 93005; 94640; 94664; 96365; 96372; 96375; 97110; 97116; 97161; 99285; G0378; J0456; J2060; J2543; J2920; J3411; J7030; J7050; J7626